=== PATIENT | male | born 1945 | race Caucasian/White ===

== ENCOUNTER 2020-01-04 03:52 | Inpatient (IN) ==
[2020-01-04] MEDS ORDERED: ALUMINUM/MAGNESIUM SUSP 30 ML UDC PO PRN (03:56)
[2020-01-04] MEDS ORDERED: ACETAMINOPHEN 325 MG TAB PO PRN (03:56)
[2020-01-04] MEDS ORDERED: MAGNESIUM HYDROXIDE SUSP 30 ML UDC PO PRN (03:56)
[2020-01-04] MEDS ORDERED: BISMUTH SUBSALICYLATE PER ML OMNICELL CHARGE PO PRN (03:56)
[2020-01-04] MEDS ORDERED: SODIUM CHLORIDE 0.65% NA SOLN 45 ML (OCEAN) PRN (03:56)
[2020-01-04] MEDS ORDERED: PATIENT'S ALLERGY INFO NEEDS ENTERED SCH (04:15)
[2020-01-04] MEDS ORDERED: SERTRALINE HCL 50 MG TABLET PO SCH (09:00)
--- NOTE | 2020-01-04 11:21 | History & Physical ---
Date of Service January 04, 2020 Impression / Recommendations (1) Depression: 01/03 -continue inpatient treatment on a 302 involuntary commitment. Continue to gather information toward the need for ongoing treatment -Every 15 minute checks for safety. Encourage group attendance and participation. Work on healthy coping skills and discharge safety plan. -Increase escitalopram to 15mg daily to target mood and anxiety. -Provide education about his diagnosis and the recommended treatment. Explore options for outpatient mental health treatment. -Involve his daughter and the [facility] for discharge planning. (2) Failure to thrive: 01/03 -Likely multifactorial, due to worsening physical condition due to Parkinson's, cognitive impairment, depression, and social isolation. -PT and OT consults for weakness with recent fall and inability to care for self at home, assess for most appropriate level of care (inpatient rehab versus home with home health). Daughter would like him to move to [place] to an assisted living facility near her, and has been looking into this option. (3) Parkinsons disease: 01/03 -continue home dose of Sinemet. (4) UTI (urinary tract infection): 01/03 -continue Bactrim twice daily x7 days, and get urine culture results from [facility]. (5) Urinary and fecal incontinence: 01/03 -home health nurse indicates they found him lying in his bed soiled with urine and feces. Appears to have longstanding urinary incontinence, current UTI, as well as progressive weakness and inability to get out of bed to use the bathroom. He will require increased assistance and possibly placement. (6) Vitamin D deficiency: 01/03 - Continue home dose of vitamin D Risk Factors Assessment Male: Yes : Yes Do You Have Access To A Gun?: No (Patient states he gave all of his guns to his grandson) Health Problems: Yes Mental Health Diagnoses: Yes Substance Use Disorders: No Previous Attempt: No Family History of Suicide: No Previous Psychiatric Hospitalization: Yes Hopelessness: Yes Smoker: No Protective Factors Assessment : No Responsible for Young Children: No Employed: No Supportive Family: Yes Good Rapport with Provider: No Psychiatric History Identifying Data DOUGLAS ASHLEY is a 75-year-old M who currently lives in [place] alone, has depression and an unclear medical history (records state Alzheimer's dementia but another places state Parkinson's disease), and was admitted on 01/04/20 05:23 on a 302 involuntary commitment on transfer from for depression from [facility] ER with inability to care for himself and suicidal thoughts to overdose on medication. Chief Complaint "Wasn't caring for myself properly I guess". History of Present Illness Per outside hospital records, patient presented to the ER 01/03/2020 on a 302 after his home health nurse found him home alone, lying in soiled undergarments, and made suicidal statements. His home health nurse noted he had also been exhibiting signs of inability to care for himself on their 12/30/2019 visit, was soiling himself and refusing to change clothes. The nurse completed a 302 petition stating the patient was incontinent of urine and stool, did not have any clean clothes in the house, was re-using urine soiled underwear. On 12/30/2019, he was found by social professionals lying in urine and stool. He said he had not been able to get up for 3 days, and wanted to take all of his sleeping pills and . He told the nurse he wanted his daughter in [place] to come home so he could take sleeping pills and while she was there, and also reviewed his end-of-life wishes with his daughter. He told ER staff he has been eating very little, has lost 20 pounds and is underweight, canceling his doctors appointments, and not taking his medications regularly. He said he had not been sleeping, as he was afraid to follow sleep and soil his bed, as he was unable to get up to use the bathroom. He had an EKG which showed sinus rhythm with first- degree AV block, rate of 70, QTc 392. His vital signs were normal, and labs were notable for RBC 4.47, hematocrit 40.9, BUN 32.4, creatinine 1.13, remainder of CBC and CMP normal. Troponin negative, TSH 2.390, UDS negative, UA cloudy, + ketones, protein, large leukocyte esterase, WBCs, bacteria. He was started on Bactrim for UTI. PCP records reviewed: Patient sees Cyril Cruz DO at [facility] in [place]. Last seen 06/30/2019 in follow-up from an ER visit the day prior for dizziness, which he was told was due to dehydration, and was started on doxycycline for unclear reasons. He came to the appointment with a friend, Soheila Mueller. He reported worsening resting tremors, urinary incontinence, weakness, fatigue, and poor dentition. He did not want to pay to get his teeth fixed. He had home health nursing on Fridays, and was following with a neurologist for his movement disorder. He had recently had a chest x-ray showing a 1.3 cm nodule in his right lung, and was scheduled to follow-up with pulmonary later in the month. Weight was 159.4 pounds his past problem list included obesity, weight loss, hypotension, insomnia, nocturia, GERD, erectile dysfunction, hyperlipidemia, cardiomyopathy, coronary artery disease, and BPH with urinary obstruction. At his annual physical 02/07/2019, he was diagnosed with Alzheimer's disease, CAD, cardiomyopathy, hyperlipidemia, insomnia, and vitamin D deficiency. His only medication was vitamin D3. He has lost 5 pounds, weight was 161.2 pounds, and he was receiving Meals on Wheels. He was referred to neurology due to a tremor and shuffling gait, and had seen urology for urinary incontinence. His father had of Parkinson's disease in his 60s. On arrival to our unit, he reported his hospitalization was a misunderstanding, although admitted he made statements that he would be "better off ." He denied a history of inpatient psychiatric treatment, although records indicate he was admitted at [facility] in 2017, and diagnosed with major depressive disorder and mild neurocognitive disorder Alzheimer's type. He re ported a fall in his bathroom about 5 days ago, and was observed to have shuffling gait and poor coordination. He said he did not feel safe at home due to weakness and would like home health to come in more frequently than 2 days/week. Staff contacted his PCP to clarify diagnoses and outpatient medications, as there were discrepancies between the ER last and his home health nursing list. Staff contacted his home health nurse, who reported that he still has a grab driver's license, and although she has contacted his PCPs office to express concerns that he is too impaired and should not drive, she is unsure whether action has been taken. Staff contacted the patient's daughter, who reports that he has been struggling for some time and going downhill, especially over the past few months in the context of worsening health. He moved to this area to be close to family, but they have since . He is and has a son and a stepson as well, but has little contact with them. His daughter has been trying to get him into assisted living near her in [place] for over a year, but he has been resistant to this, citing fears that he does not have sufficient funds, which she says is untrue. She is hoping that he will now agreed to move there. The Office of Aging has been involved but has told her that he is "competent to live in such poor conditions." He has been refusing to go to the doctor, take medications, shower, eat, or dress. He repeatedly tells her he wants to . On my assessment, the patient states he is here due to not caring for himself and problems with "cleanliness." He is unable to state how long this is been going on, and says he is "bad with time." He reports worsening mood, weakness, poor energy, and dissatisfaction with his life, stating "I just want a normal life," which he clarifies means "good health." He says he would prefer not to take any medications, and does not think any of his medications help him. He references his tremor, stating it is always there and interferes with sleep, and he does not think the Sinemet helps with his movements. He admits he never followed up with a neurologist, and that he has been canceling multiple doctors appointments, which he attributes to weakness and being unable to stand up or get out of bed. He says he drives himself to his appointments, and denies recently getting lost and MVAs. He reports multiple stressors, including "the state of the world," and disagreements with his daughter, namely that she wants him to go to assisted living, but he would "rather not," stating he does not have enough money. He admits to making suicidal statements, but says he "chose my words poorly, I just said it, I didn't mean it." He endorses frequent worry, stating he is worried about the state of the world, trying to becoming a world power, and the state of the [place]. He is socially isolated, stating he return to [place] where he is from as he had family members there, but they have all (he is unsure how long ago). He has one friend, an 88-year-old woman named Soheila who he met at the [facility], but states she can only provide limited support. He no longer goes to the [facility] or socializes outside the home. He does not endorse symptoms of lali or psychosis. He does report memory impairment. He is not sure how long he has been on the Lexapro. Past Psychiatric History Current Psychiatric Diagnosis: MDD, recurrent Outpatient Services: PCP Cyril Cruz DO. No psychiatrist, therapist, or case technician, although reportedly the Office of Aging has recently become involved. Previous Psych Admissions: Patient denied, but outside hospital records indicate he was involuntarily committed [facility] in 2017 for suicidal ideation. Do You Have Access To A Gun?: No (Patient states he gave all of his guns to his grandson) History of Previous Suicide Attempt: No Past Medication Trials: Unknown -patient cannot recall Allergies Allergy/AdvReac Type Severity Reaction Status Date / Time No Known Allergies Allergy Unverified 01/04/20 04:59 Home Medications Home Medications Medication Instructions Recorded Confirmed Type carbidopa-levodopa 1 tab PO TID 01/04/20 01/04/20 History cholecalciferol (vitamin D3) 5,000 unit PO DAILY 01/04/20 01/04/20 History [Vitamin D3] escitalopram oxalate [Lexapro] 10 mg PO DAILY 01/04/20 01/04/20 History Family History Family History of: Other-List under Comment Family Mental Health History Comment: Father of Parkinson's disease in his 60s per OSH records, patient is unsure if this is accurate Alcohol History Hx of Alcohol Use Over the Past 12 Months: No AUDIT Total Score: 0 Smoking Use Have You Smoked or Used Tobacco Products in the Last 30 Days: No Smoking Status: Former smoker Substance History Hx of Prescription Med Misuse Over the Past 12 Months: No Hx of Over the Counter Med Misuse Over the Past 12 Months: No Hx of Inhalent Misuse Over the Past 12 Months: No Hx of Organic Substance Use Over the Past 12 Months: No Hx of Illegal Substances/Street Drug Use Over Past 12 Months: No Problems as a Result of Past Substance Use: None Identified Personal History Living Arrangements: Home Living Arrangements Comments: Alone in [place]. 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) Number Of Children: 1 son, 1 daughter, 1 step-son Beliefs That Will Affect Care: None Current Legal Problems: No Patient History Medical History (Updated 01/04/20 @ 12:17 by Crystal Soares MD) CAD (coronary artery disease) Depression Failure to thrive Parkinsons disease Urinary and fecal incontinence UTI (urinary tract infection) Vitamin D deficiency Social History Preferred Language: Omani Communication Ability: Effective Supervisor [employer] Required: No Beliefs That Will Affect Care: None Feels Safe at Home: No Smoking Status: Former smoker Review of Systems Review of Systems: All systems reviewed & are unremarkable except as noted in HPI & below Weakness, urinary incontinence, gait difficulties, tremor, memory impairment Physical Exam Psychiatric: Somnolent, difficult to arouse from sleep Apperance: appropriately dressed and appeared stated age Thin, stooped over Eye Contact: + poor eye contact Slow, shuffling, unsteady gait Affect: + depressed affect, + anxious affect, + constricted affect and mood congruent with affect Mood: + depressed mood and + anxious mood Thought Process: + circumstantial thought process Thought Content: + cognitive distortions Suicidal Thoughts: denies suicidal thoughts Homicidal Thoughts: denies homicidal thoughts Hallucinations: no auditory hallucinations and no visual hallucinations Cognition: + recent memory not intact and + attention not intact Estimated Intelligence: consistent with education level Insight: + impaired insight Judgement: + impaired judgement Vital Signs (Past 24 Hours): Last Vital Signs Temp 36.6 C 01/04/20 06:00 Pulse 62 01/04/20 06:00 Resp 16 01/04/20 06:00 BP 124/68 01/04/20 06:00 Exam Statement: A physical exam was performed in the ER prior to admission to the unit by Dr. Carlos Sumner. I accept that physical as correct/medical clearance for the inpatient physical exam. Results & Data (U) Current Inpatient Medications Current Inpatient Medications: Current Inpatient Medications Acetaminophen (Tylenol) 650 mg PO Q4H PRN PRN Reason: Headache or Minor Fever Stop: 02/03/20 03:55 Al Hydrox/Mg Hydrox/Simethicone (Maalox) 30 ml PO Q4H PRN PRN Reason: GI Upset Stop: 02/03/20 03:55 Bismuth Subsalicylate (Kaopectate) 15 ml PO PRN PRN PRN Reason: Loose Stool Stop: 02/03/20 03:55 Donepezil HCl (Aricept) 5 mg PO QPM OPHELIA Stop: 02/03/20 20:59 Magnesium Hydroxide (Milk Of Magnesia) 30 ml PO DAILY PRN PRN Reason: Constipation Stop: 02/03/20 03:55 Sertraline HCl (Zoloft) 25 mg PO QAM OPHELIA Stop: 02/03/20 08:59 Sodium Chloride ([place] Nasal) 1 - 2 sprays NA PRN PRN PRN Reason: Nasal Dryness/Congestion Stop: 02/03/20 03:55
[2020-01-04] MEDS: CARBIDOPA/LEVODOPA 25/100MG TAB PO SCH ×2 (14:41→20:52)
[2020-01-04] MEDS: SULFAMETHOXAZOLE/TRIMETHOPRIM DS 800/160MG TAB PO SCH ×2 (14:41→20:51)
[2020-01-04] MEDS: LACTOBACILLUS ACIDOPHILUS (FLORANEX) TAB PO SCH (17:18)
[2020-01-04] MEDS ORDERED: DONEPEZIL HCL 5 MG TAB PO SCH (21:00)
--- NOTE | 2020-01-05 08:15 | Psychiatric Progress Note ---
Date of Service January 05, 2020 Impression / Recommendations Impression 75-year-old male with recurrent depression, Parkinson's disease, and Alzheimer's dementia per outpatient records who presented with inability to care for himself after his home health workers found him lying in his own urine and feces multiple times over the past week. At one point he had been unable to get out of bed for 3 days due to weakness. He then made suicidal statements to his daughter and was involuntarily committed. Since arrival, his daughter has reported that he frequently makes statements about wanting to , but she does not think he will act on them. He has been gradually decompensating as a result of his neurological conditions and has now reached the point where he is unable to provide for his own basic needs or continue to live independently, and is experiencing this is a significant loss. He will need a family meeting to include his daughter in the office of aging servomechanism designer in order to look at alternative options after discharge. These include assisted living in [place] and inpatient rehab in [place]. In the interim, inpatient treatment is medically necessary due to the severity of symptoms and risk of harm as a result of inability to care for himself until a safe discharge plan can be arranged. (1) Depression: 01/03 -continue inpatient treatment on a 302 involuntary commitment. Continue to gather information toward the need for ongoing treatment -Every 15 minute checks for safety. Encourage group attendance and participation. Work on healthy coping skills and discharge safety plan. -Increase escitalopram to 15mg daily to target mood and anxiety. -Provide education about his diagnosis and the recommended treatment. Explore options for outpatient mental health treatment. -Involve his daughter and the [facility]OA for discharge planning. 01/04 -continue escitalopram 15 mg daily. Encourage patient to participate in groups and therapy. -Schedule family meeting as above. (2) Failure to thrive: 01/03 -Likely multifactorial, due to worsening physical condition due to Parkinson's, cognitive impairment, depression, and social isolation. -PT and OT consults for weakness with recent fall and inability to care for self at home, assess for most appropriate level of care (inpatient rehab versus home with home health). Daughter would like him to move to [place] to an assisted living facility near her, and has been looking into this option. 01/04 -awaiting PT and OT assessments to determine level of care (3) Parkinsons disease: 01/03 -continue home dose of Sinemet. 01/04 -patient would benefit from ongoing care with a neurologist, but has not been willing to attend appointments. (4) UTI (urinary tract infection): 01/03 -continue Bactrim twice daily x7 days, and get urine culture results from [facility] ER. 01/04 -culture and sensitivities not yet completed, will check again tomorrow. (5) Urinary and fecal incontinence: 01/03 -home health nurse indicates they found him lying in his bed soiled with urine and feces. Appears to have longstanding urinary incontinence, current UTI, as well as progressive weakness and inability to get out of bed to use the bathroom. He will require increased assistance and possibly placement. (6) Vitamin D deficiency: 01/03 - Continue home dose of vitamin D (7) Lung nodule: 01/04 -1.3 cm lung nodule noted in outpatient records from PCP 06/2019 visit, patient had been referred to a emu farmer. He does not think he ever went, and the ER called today to inform us of the results of his chest x-ray prior to transfer, which showed a 1.3 centimeter nodule. He will need to follow-up with his PCP for ongoing monitoring/work-up/treatment. Risk Factors Assessment Male: Yes : Yes Do You Have Access To A Gun?: No (Patient states he gave all of his guns to his grandson) Health Problems: Yes Mental Health Diagnoses: Yes Substance Use Disorders: No Previous Attempt: No Family History of Suicide: No Previous Psychiatric Hospitalization: Yes Hopelessness: Yes Smoker: No Protective Factors Assessment : No Responsible for Young Children: No Employed: No Supportive Family: Yes Good Rapport with Provider: No Interval History Identifying Information DOUGLAS ASHLEY is a 75-year-old M who currently lives in [place] alone, has depression and an unclear medical history (records state Alzheimer's dementia but another places state Parkinson's disease), and was admitted on 01/04/20 05:23 on a 302 involuntary commitment on transfer from for depression from [facility] ER with inability to care for himself and suicidal thoughts to overdose on medication. Chief Complaint " Average". Review of Systems Sleep Information Total Hours of Sleep: 4.5 Sleep Comments: Pt had difficulty falling asleep due to worry that he would have episodes of incontinence through the night. After reassurance he was able to fall asleep. Meal Information Percent Meal Consumed - Breakfast: 100 Percent Meal Consumed - Lunch: 75 Percent Meal Consumed - Dinner: 90 Subjective Subjective Patient was seen & assessed and interval progress reviewed with nursing and social work. Staff report he has been very anxious, has had multiple episodes of incontinence (both urine and feces), and slept poorly overnight. He requires staff assist for self care, and was reluctant to wear depends. He is very un steady on his feet, and has not yet been seen by PT and OT. Sherine called to report results of his CXR - persistent 13mm opacity overlying the left upper lobe. Urine culture and sensitivities are still pending. On my assessment, he reports mood is anxious and depressed, hopeless, and overwhelmed. Informed of his chest x-ray results and recommendations to follow-up, noted review of PCP records which indicated he had a pulmonology appointment earlier this year, but he does not think he went, stating "there's nothing wrong with my lungs." He says "my trouble is I have a house I can't live in hardly. I don't want to lose my house, but looks like I'm going to lose it. You work all your life to get a house, then can't manage it." Reviewed option of inpatient physical rehab in [place], and he states "I'd probably get in a car accident driving over there." Reviewed option of assisted living in [place], and he says "everything in that area costs double what it is up here, and my monthly income will be reduced." He admits that he has no other available options for housing, but does not like discussing it, stating "I'm trying to simplify my life, all this complicates it." He denies SI, and feels safe here. He is focused on bowel and bladder control, at one point stopping the interview as he thought he had to have a bowel movement, but then decided he did not. He was able to complete the MOCA, but had difficulty understanding the directions of they had to be repeated multiple times. Reviewed his score and concerns for cognitive impairment, as well as physical impairment due to his Parkinson's disease, his own reports that he does not trust his driving, and the need to make the mandated [employer] report of his medical condition. He expressed dismay, stating "my life is over, won't be able to drive to get food, go to the doctors, get a haircut." Reviewed other options for transportation, including the county van, or that if he goes to an assisted living facility they will likely provide transportation. Process multiple losses with him, including his home and the ability to drive. Reviewed what will happen next and provided him with [facility] handout: "What to expect when my medical condition has been reported to [facility]." Physical Exam Psychiatric Orientation: alert and cooperative Thin, frail, hunched over, limited hygiene and grooming, smells of urine. Eye Contact: + fair eye contact Slow, shuffling gait, appears unsteady on feet. Resting upper extremity tremor. Slow movements, difficulty sitting up Soft, difficult to hear at times Affect: + depressed affect, + anxious affect, + constricted affect and mood congruent with affect Mood: + depressed mood and + anxious mood Thought Process: goal directed thought process Focused on negative thoughts, losses Thought Content: + preoccupation, + hopelessness and + worthlessness Suicidal Thoughts: denies suicidal thoughts Homicidal Thoughts: denies homicidal thoughts Hallucinations: no auditory hallucinations Cognition: language grossly intact; + recent memory not intact and + attention not intact Estimated Intelligence: consistent with education level Insight: + limited insight Judgement: + limited judgement Vital Signs (Past 24 Hours) Last Vital Signs Temp 36.7 C 01/05/20 06:51 Pulse 80 01/05/20 06:52 Resp 18 01/05/20 06:51 BP 129/79 01/05/20 06:52 Pulse Ox 97 01/04/20 12:15 Results & Data ([facility]) Current Inpatient Medications Current Inpatient Medications: Current Inpatient Medications Acetaminophen (Tylenol) 650 mg PO Q4H PRN PRN Reason: Headache or Minor Fever Stop: 02/03/20 03:55 Al Hydrox/Mg Hydrox/Simethicone (Maalox) 30 ml PO Q4H PRN PRN Reason: GI Upset Stop: 02/03/20 03:55 Bismuth Subsalicylate (Kaopectate) 15 ml PO PRN PRN PRN Reason: Loose Stool Stop: 02/03/20 03:55 Carbidopa/Levodopa (Sinemet 25/100 Mg) 1 tab PO TID OPHELIA Stop: 02/03/20 13:59 Last Admin: 01/04/20 20:52 Dose: 1 tab Documented by: Escitalopram Oxalate (Lexapro Tab) 15 mg PO DAILY OPHELIA Stop: 02/04/20 08:59 Lactobacillus Acidophilus (Floranex) 4 tab PO TIDM OPHELIA Stop: 02/03/20 17:44 Last Admin: 01/04/20 17:18 Dose: 4 tab Documented by: Magnesium Hydroxide (Milk Of Magnesia) 30 ml PO DAILY PRN PRN Reason: Constipation Stop: 02/03/20 03:55 Sodium Chloride ([place] Nasal) 1 - 2 sprays NA PRN PRN PRN Reason: Nasal Dryness/Congestion Stop: 02/03/20 03:55 Trimethoprim/Sulfamethoxazole (Septra Ds 800/160mg Tab) 1 tab PO BID OPHELIA Stop: 01/09/20 13:29 Last Admin: 01/04/20 20:51 Dose: 1 tab Documented by: Vitamin D (Vitamin D3) 5,000 units PO DAILY OPHELIA Stop: 02/04/20 08:59 Mental Health & Subst Abuse Tx Therapist Name of Therapist: None Truck Driver Rubbish Collector Name of Truck Driver Rubbish Collector: None Post Discharge Appointments Primary Care Physician Name Of Family Doctor: Dr. Cyril Cruz Primary Care Provider Appointment Comment: [address] [place], [place] [address]Sherine PA
[2020-01-05] MEDS: LACTOBACILLUS ACIDOPHILUS (FLORANEX) TAB PO SCH ×3 (08:39→18:03)
[2020-01-05] MEDS: CHOLECALCIFEROL 1,000 UNITS 25 MCG TAB PO SCH (08:40)
[2020-01-05] MEDS: CARBIDOPA/LEVODOPA 25/100MG TAB PO SCH ×3 (08:42→21:10)
[2020-01-05] MEDS: ESCITALOPRAM OXALATE 10 MG TAB PO SCH (08:42)
[2020-01-05] MEDS: SULFAMETHOXAZOLE/TRIMETHOPRIM DS 800/160MG TAB PO SCH ×2 (08:45→21:10)
[2020-01-05] MEDS ORDERED: ESCITALOPRAM OXALATE 10 MG TAB PO SCH (09:00)
[2020-01-06] MEDS: LACTOBACILLUS ACIDOPHILUS (FLORANEX) TAB PO SCH ×3 (08:47→16:39)
[2020-01-06] MEDS: ESCITALOPRAM OXALATE 10 MG TAB PO SCH (08:47)
[2020-01-06] MEDS: SULFAMETHOXAZOLE/TRIMETHOPRIM DS 800/160MG TAB PO SCH ×2 (08:48→21:08)
[2020-01-06] MEDS: CHOLECALCIFEROL 1,000 UNITS 25 MCG TAB PO SCH (08:48)
[2020-01-06] MEDS: CARBIDOPA/LEVODOPA 25/100MG TAB PO SCH ×3 (08:48→21:09)
--- NOTE | 2020-01-06 09:09 | Psychiatric Progress Note ---
Date of Service January 06, 2020 Impression / Recommendations Impression 75-year-old male with recurrent depression, Parkinson's disease, and Alzheimer's dementia per outpatient records who presented with inability to care for himself after his home health workers found him lying in his own urine and feces multiple times over the past week. At one point he had been unable to get out of bed for 3 days due to weakness. He then made suicidal statements to his daughter and was involuntarily committed. Since arrival, his daughter has reported that he frequently makes statements about wanting to , but she does not think he will act on them. He has been gradually decompensating as a result of his neurological conditions and has now reached the point where he is unable to provide for his own basic needs or continue to live independently, and is experiencing this is a significant loss. He will need a family meeting to include his daughter in the office of aging director university in order to look at alternative options after discharge. These include assisted living in [place] and inpatient rehab in [place]. In the interim, inpatient treatment is medically necessary due to the severity of symptoms and risk of harm as a result of inability to care for himself until a safe discharge plan can be arranged. (1) Depression: 01/03 -continue inpatient treatment on a 302 involuntary commitment. Continue to gather information toward the need for ongoing treatment -Every 15 minute checks for safety. Encourage group attendance and participation. Work on healthy coping skills and discharge safety plan. -Increase escitalopram to 15mg daily to target mood and anxiety. -Provide education about his diagnosis and the recommended treatment. Explore options for outpatient mental health treatment. -Involve his daughter and the [facility] for discharge planning. 01/04 -continue escitalopram 15 mg daily. Encourage patient to participate in groups and therapy. -Schedule family meeting as above. (2) Failure to thrive: 01/03 -Likely multifactorial, due to worsening physical condition due to Parkinson's, cognitive impairment, depression, and social isolation. -PT and OT consults for weakness with recent fall and inability to care for self at home, assess for most appropriate level of care (inpatient rehab versus home with home health). Daughter would like him to move to [place] to an assisted living facility near her, and has been looking into this option. 01/04 -awaiting PT and OT assessments to determine level of care (3) Parkinsons disease: 01/03 -continue home dose of Sinemet. 01/04 -patient would benefit from ongoing care with a neurologist, but has not been willing to attend appointments. (4) UTI (urinary tract infection): 01/03 -continue Bactrim twice daily x7 days, and get urine culture results from [facility] ER. 01/04 -culture and sensitivities not yet completed, will check again tomorrow. (5) Urinary and fecal incontinence: 01/03 -home health nurse indicates they found him lying in his bed soiled with urine and feces. Appears to have longstanding urinary incontinence, current UTI, as well as progressive weakness and inability to get out of bed to use the bathroom. He will require increased assistance and possibly placement. (6) Vitamin D deficiency: 01/03 - Continue home dose of vitamin D (7) Lung nodule: 01/04 -1.3 cm lung nodule noted in outpatient records from PCP 06/2019 visit, patient had been referred to a vascular manager. He does not think he ever went, and the ER called today to inform us of the results of his chest x-ray prior to transfer, which showed a 1.3 centimeter nodule. He will need to follow-up with his PCP for ongoing monitoring/work-up/treatment. Risk Factors Assessment Male: Yes : Yes Do You Have Access To A Gun?: No (Patient states he gave all of his guns to his grandson) Health Problems: Yes Mental Health Diagnoses: Yes Substance Use Disorders: No Previous Attempt: No Family History of Suicide: No Previous Psychiatric Hospitalization: Yes Hopelessness: Yes Smoker: No Protective Factors Assessment : No Responsible for Young Children: No Employed: No Supportive Family: Yes Good Rapport with Provider: No Interval History Identifying Information DOUGLAS ASHLEY is a 75-year-old M who currently lives in [place] alone, has depression and an unclear medical history (records state Alzheimer's dementia but another places state Parkinson's disease), and was admitted on 01/04/20 05:23 on a 302 involuntary commitment on transfer from for depression from [facility] ER with inability to care for himself and suicidal thoughts to overdose on medication. Chief Complaint "[]". Review of Systems Sleep Information Total Hours of Sleep: 4.75 Sleep Comments: Pt had difficulty falling asleep due to worry that he would have episodes of incontinence through the night. After reassurance he was able to fall asleep. Meal Information Percent Meal Consumed - Breakfast: 90 Percent Meal Consumed - Lunch: 75 Percent Meal Consumed - Dinner: 90 Subjective Subjective Patient was seen & assessed and interval progress reviewed with [treatment team] [nursing and social work] Physical Exam Vital Signs (Past 24 Hours) Last Vital Signs Temp 36.8 C 01/06/20 07:01 Pulse 84 01/06/20 07:01 Resp 18 01/06/20 07:01 BP 134/66 01/06/20 07:01 Pulse Ox 97 01/04/20 12:15 Results & Data ([facility]) Current Inpatient Medications Current Inpatient Medications: Current Inpatient Medications Acetaminophen (Tylenol) 650 mg PO Q4H PRN PRN Reason: Headache or Minor Fever Stop: 02/03/20 03:55 Al Hydrox/Mg Hydrox/Simethicone (Maalox) 30 ml PO Q4H PRN PRN Reason: GI Upset Stop: 02/03/20 03:55 Bismuth Subsalicylate (Kaopectate) 15 ml PO PRN PRN PRN Reason: Loose Stool Stop: 02/03/20 03:55 Carbidopa/Levodopa (Sinemet 25/100 Mg) 1 tab PO TID OPHELIA Stop: 02/03/20 13:59 Last Admin: 01/06/20 08:48 Dose: 1 tab Documented by: Escitalopram Oxalate (Lexapro Tab) 15 mg PO DAILY OPHELIA Stop: 02/04/20 08:59 Last Admin: 01/06/20 08:47 Dose: 15 mg Documented by: Lactobacillus Acidophilus (Floranex) 4 tab PO TIDM OPHELIA Stop: 02/03/20 17:44 Last Admin: 01/06/20 08:47 Dose: 4 tab Documented by: Magnesium Hydroxide (Milk Of Magnesia) 30 ml PO DAILY PRN PRN Reason: Constipation Stop: 02/03/20 03:55 Sodium Chloride ([place] Nasal) 1 - 2 sprays NA PRN PRN PRN Reason: Nasal Dryness/Congestion Stop: 02/03/20 03:55 Trimethoprim/Sulfamethoxazole (Septra Ds 800/160mg Tab) 1 tab PO BID OPHELIA Stop: 01/09/20 13:29 Last Admin: 01/06/20 08:48 Dose: 1 tab Documented by: Vitamin D (Vitamin D3) 5,000 units PO DAILY OPHELIA Stop: 02/04/20 08:59 Last Admin: 01/06/20 08:48 Dose: 5,000 units Documented by: Mental Health & Subst Abuse Tx Therapist Name of Therapist: None Tactical/Mobile Watch Officer Name of Tactical/Mobile Watch Officer: None Post Discharge Appointments Primary Care Physician Name Of Family Doctor: Dr. Cyril Cruz Primary Care Provider Appointment Comment: [address] [place], [place] [address]Jarrell PA
--- NOTE | 2020-01-06 11:23 | Psychiatric Progress Note ---
Date of Service January 06, 2020 Impression / Recommendations Impression This 75-year-old man was admitted because of inability to care for himself within the context of depression and Parkinson's disease. He also expressed suicidal threats that included taking an overdose of his stockpiled medications at home. The patient explains that he is having a great deal of difficulty adjusting to his new reality; namely that he has a progressive neurodegenerative disorder that is now interfering with his ability to function while living independently in his 3 bedroom home and [place]. Currently, he is telling us that he does not have any actual suicidal intent, but admits that he sometimes threatens suicide as a way of expressing his emotional distress. On the unit, the patient has demonstrated a number of strengths, including a sense of humor, concerning compassion about others, and a willingness to cooperate with treatment. Understandably, he tends to view options such as assisted living and residential rehabilitation treatment as evidence of further loss of independence, control, and dignity. However, while he is able to say that he is "not exactly happy" about needing inpatient rehab, with a follow-up plan for assisted living in the [facility], close to his daughter, son-in-law, and grandchildren, he is able to clearly state that he understands that he cannot safely return to home at this point because he is unable to care for his own physical needs, including his nutritional needs, his physical health needs, and his personal care needs such as bathing, showering, toileting, and dressing. The patient has been placed on Lexapro, and the dose is being titrated the patient's mood has improved, although he continues to show evidence of depression with a tendency towards negative thinking and excessive worrying. However, he is convincingly denying suicidal ideation at the present time. (1) Depression: 01/03 -continue inpatient treatment on a 302 involuntary commitment. Continue to gather information toward the need for ongoing treatment -Every 15 minute checks for safety. Encourage group attendance and participation. Work on healthy coping skills and discharge safety plan. -Increase escitalopram to 15mg daily to target mood and anxiety. -Provide education about his diagnosis and the recommended treatment. Explore options for outpatient mental health treatment. -Involve his daughter and the [facility] for discharge planning. 01/04 -continue escitalopram 15 mg daily. Encourage patient to participate in groups and therapy. -Schedule family meeting as above. 01/05 -the patient was able to smile and joke a bit today during an individual encounter with psychiatry. He continues to experience emotional distress related to themes of loss, such as loss of independence and physical health. -Patient participated in family meeting today with his daughter, Cookie, as well as the psychiatrist and psychotherapist social worker. The patient agreed to sign releases of information and is aware of the plan for him to leave the hospital on Thursday and be transferred to a rehabilitation program. He had a number of questions regarding the services that are likely to be offered in the rehabilitation program, and he accepted the explanations. Further, the patient acknowledges that he agreed that it is not currently safe for him to go home given his mobility issues, the fact that he is not able to put on or remove adult diapers, the fact it is sometimes difficult for him to remember to take his medications on time, and the fact that he has mobility problems due to his Parkinson's disease. -The patient acknowledges that he feels discouraged by the fact that he is not making progress, in terms of his movement disorder, and he expresses hope that rehab will be helpful in this regard. Present on Admission?: Yes (2) Failure to thrive: 01/03 -Likely multifactorial, due to worsening physical condition due to Parkinson's, cognitive impairment, depression, and social isolation. -PT and OT consults for weakness with recent fall and inability to care for self at home, assess for most appropriate level of care (inpatient rehab versus home with home health). Daughter would like him to move to [place] to an assisted living facility near her, and has been looking into this option. 01/04 -awaiting PT and OT assessments to determine level of care 01/05 -we have determined that the patient is an excellent candidate for the residential rehabilitation level of care at the present time. Goals will include helping the patient through occupational therapy to allow him to be able to apply and remove "Depends," use absorbent pads on his furniture, improve ambulation and grasp, improve nutritional status, and improve balance and strength. (3) Parkinsons disease: 01/03 -continue home dose of Sinemet. 01/04 -patient would benefit from ongoing care with a neurologist, but has not been willing to attend appointments. 01/05 -the patient needs additional education regarding Parkinson's disease. He admits that he sometimes feels as if there is nothing that can be done to improve his condition, but he is receptive to the idea of physical rehabilitation, additional education regarding medication management (such as the importance of taking his Parkinson medications exactly on time and as prescribed) and for preparation for progressing to the assisted living level of care. (4) UTI (urinary tract infection): 01/03 -continue Bactrim twice daily x7 days, and get urine culture results from [facility]. 01/04 -culture and sensitivities not yet completed, will check again tomorrow. 01/04 - Culture and Sensitivities are still pending. Will check with lab. (5) Urinary and fecal incontinence: 01/03 -home health nurse indicates they found him lying in his bed soiled with urine and feces. Appears to have longstanding urinary incontinence, current UTI, as well as progressive weakness and inability to get out of bed to use the bathroom. He will require increased assistance and possibly placement. 01/05 -The patient is very distressed by this circumstance, and also worries that when visiting friends and family that he may soil or wet their furniture should he have an "accident." -He notes that he has great difficulty applying and removing adult diapers such as "Depends" because of his movement disorder. The patient states, "I can do it, but it takes so long that I tend to just give up. (6) Vitamin D deficiency: 01/03 - Continue home dose of vitamin D (7) Lung nodule: 01/04 -1.3 cm lung nodule noted in outpatient records from PCP 06/2019 visit, patient had been referred to a labeling machine operator. He does not think he ever went, and the ER called today to inform us of the results of his chest x-ray prior to transfer, which showed a 1.3 centimeter nodule. He will need to follow-up with his PCP for ongoing monitoring/work-up/treatment. Risk Factors Assessment Male: Yes : Yes Do You Have Access To A Gun?: No (Patient states he gave all of his guns to his grandson) Health Problems: Yes Mental Health Diagnoses: Yes Substance Use Disorders: No Previous Attempt: No Family History of Suicide: No Previous Psychiatric Hospitalization: Yes Hopelessness: Yes Smoker: No Protective Factors Assessment : No Responsible for Young Children: No Employed: No Supportive Family: Yes Good Rapport with Provider: No Interval History Chief Complaint " Depression, but it is better.". Review of Systems Sleep Information Total Hours of Sleep: 4.75 Sleep Comments: Pt had difficulty falling asleep due to worry that he would have episodes of incontinence through the night. After reassurance he was able to fall asleep. Meal Information Percent Meal Consumed - Breakfast: 100 Percent Meal Consumed - Lunch: 75 Percent Meal Consumed - Dinner: 90 Subjective Subjective Patient was seen & assessed and interval progress reviewed with treatment team. In addition, I met telephonically with the patient's daughter, Cookie, in the p resence of the patient and the unit psychotherapist social worker this morning, and I then met with individually with the patient in order to assess his current mental status, evaluate his response to treatment, make any necessary changes in the patient's medication regiment with the patient, and address issues, questions and concerns that may arise. The patient is clearly able to acknowledge that in his current state of physical health he is unable to safely care for his own physical needs independently in his own home, which he describes as a 3 bedroom house. He lives alone, and his daughter, son-in-law, and grandchildren live approximately 4 hours away in [facility]. At the same time, he notes that he finds options such as residential rehabilitation services followed by assisted living to be discouraging because he sees them as evidence of further loss of independence, dignity, and status. Further, he worries that the cost of rehabilitation and assisted living may be such that it will reduce his savings, and he notes that he does not wish to deprive his daughter of a generous inheritance. During the family telephonic conference the patient's daughter was able to offer him reassurance is that in this regard and she explained to him that, for her, his safety is worth much more to her than any monetary inheritance. We focused on overcoming the fact that the patient truly wishes th at his physical condition was not such that he required rehabilitation and assisted living by processing the patient's feelings in this regard while, at the same time, appealing to the patient's executive functions and ability to make mature decisions. During both encounters the patient smiled occasionally and made several jokes. He also laughed out loud on 2 occasions and acknowledges that his mood has improved. He tells us that he does feel ready for residential rehabilitation, but would still like to have a better understanding of the costs and what percentage of the cost are likely to be covered by insurance. Physical Exam Psychiatric Orientation: alert, oriented x 3 and cooperative Apperance: appropriately dressed and appropriately groomed Eye Contact: + fair eye contact Patient has a 3-6 beat per second bilateral tremor of the upper extremities, head, and neck, secondary to parkinsonism The patient's speech is somewhat soft and slightly garbled, but clearly audible and understandable. The patient's affect remains somewhat subdued, but he also smiles and laughs appropriately several times during the encounter. Mood: + anxious mood The patient acknowledges that he is anxious about transferring to a residential rehabilitation program. He notes that part of his anxiety has to do with the fact that he will be "the new kid," and will not know anybody at the proposed residential rehabilitation center. We assured him that he has made friends here and that he will make friends there, as well. Thought Process: goal directed thought process Thought Content: + preoccupation and reality based without delusions Suicidal Thoughts: denies suicidal thoughts Homicidal Thoughts: denies homicidal thoughts Hallucinations: no auditory hallucinations and no visual hallucinations Cognition: recent memory grossly intact, remote memory grossly intact and language grossly intact Estimated Intelligence: average estimated intelligence Insight: + fair insight Judgement: + fair judgement Vital Signs (Past 24 Hours) Last Vital Signs Temp 36.8 C 01/06/20 07:01 Pulse 84 01/06/20 07:01 Resp 18 01/06/20 07:01 BP 134/66 01/06/20 07:01 Pulse Ox 97 01/04/20 12:15 Results & Data ([facility]) Current Inpatient Medications Current Inpatient Medications: Current Inpatient Medications Acetaminophen (Tylenol) 650 mg PO Q4H PRN PRN Reason: Headache or Minor Fever Stop: 02/03/20 03:55 Al Hydrox/Mg Hydrox/Simethicone (Maalox) 30 ml PO Q4H PRN PRN Reason: GI Upset Stop: 02/03/20 03:55 Bismuth Subsalicylate (Kaopectate) 15 ml PO PRN PRN PRN Reason: Loose Stool Stop: 02/03/20 03:55 Carbidopa/Levodopa (Sinemet 25/100 Mg) 1 tab PO TID OPHELIA Stop: 02/03/20 13:59 Last Admin: 01/06/20 08:48 Dose: 1 tab Documented by: Escitalopram Oxalate (Lexapro Tab) 15 mg PO DAILY OPHELIA Stop: 02/04/20 08:59 Last Admin: 01/06/20 08:47 Dose: 15 mg Documented by: Lactobacillus Acidophilus (Floranex) 4 tab PO TIDM OPHELIA Stop: 02/03/20 17:44 Last Admin: 01/06/20 08:47 Dose: 4 tab Documented by: Magnesium Hydroxide (Milk Of Magnesia) 30 ml PO DAILY PRN PRN Reason: Constipation Stop: 02/03/20 03:55 Sodium Chloride ([place] Nasal) 1 - 2 sprays NA PRN PRN PRN Reason: Nasal Dryness/Congestion Stop: 02/03/20 03:55 Trimethoprim/Sulfamethoxazole (Septra Ds 800/160mg Tab) 1 tab PO BID OPHELIA Stop: 01/09/20 13:29 Last Admin: 01/06/20 08:48 Dose: 1 tab Documented by: Vitamin D (Vitamin D3) 5,000 units PO DAILY OPHELIA Stop: 02/04/20 08:59 Last Admin: 01/06/20 08:48 Dose: 5,000 units Documented by: Mental Health & Subst Abuse Tx Therapist Name of Therapist: None Bolt Maker Name of Bolt Maker: None Post Discharge Appointments Primary Care Physician Name Of Family Doctor: Dr. Cyril Cruz Primary Care Provider Appointment Comment: [address] [place], [place] [address]J[place]
[2020-01-07] MEDS: LACTOBACILLUS ACIDOPHILUS (FLORANEX) TAB PO SCH ×3 (08:51→18:45)
[2020-01-07] MEDS: ESCITALOPRAM OXALATE 10 MG TAB PO SCH (08:52)
[2020-01-07] MEDS: CHOLECALCIFEROL 1,000 UNITS 25 MCG TAB PO SCH (08:53)
[2020-01-07] MEDS: CARBIDOPA/LEVODOPA 25/100MG TAB PO SCH ×3 (08:53→21:23)
[2020-01-07] MEDS: SULFAMETHOXAZOLE/TRIMETHOPRIM DS 800/160MG TAB PO SCH ×2 (08:53→21:23)
--- NOTE | 2020-01-07 12:13 | Psychiatric Progress Note ---
Date of Service January 07, 2020 Impression / Recommendations Impression This 75-year-old man was admitted because of inability to care for himself within the context of depression and Parkinson's disease. He also expressed suicidal threats that included taking an overdose of his stockpiled medications at home. The patient explains that he is having a great deal of difficulty adjusting to his new reality; namely that he has a progressive neurodegenerative disorder that is now interfering with his ability to function while living independently in his 3 bedroom home and Fish. Currently, he is telling us that he does not have any actual suicidal intent, but admits that he sometimes threatens suicide as a way of expressing his emotional distress. On the unit, the patient has demonstrated a number of strengths, including a sense of humor, concerning compassion about others, and a willingness to cooperate with treatment. Understandably, he tends to view options such as assisted living and residential rehabilitation treatment as evidence of further loss of independence, control, and dignity. However, while he is able to say that he is "not exactly happy" about needing inpatient rehab, with a follow-up plan for assisted living in the [facility], close to his daughter, son-in-law, and grandchildren, he is able to clearly state that he understands that he cannot safely return to home at this point because he is unable to care for his own physical needs, including his nutritional needs, his physical health needs, and his personal care needs such as bathing, showering, toileting, and dressing. The patient has been placed on Lexapro, and the dose is being titrated the patient's mood has improved, although he continues to show evidence of depression with a tendency towards negative thinking and excessive worrying. However, he is convincingly denying suicidal ideation at the present time. (1) Depression: 01/03 -continue inpatient treatment on a 302 involuntary commitment. Continue to gather information toward the need for ongoing treatment -Every 15 minute checks for safety. Encourage group attendance and participation. Work on healthy coping skills and discharge safety plan. -Increase escitalopram to 15mg daily to target mood and anxiety. -Provide education about his diagnosis and the recommended treatment. Explore options for outpatient mental health treatment. -Involve his daughter and the [facility] for discharge planning. 01/04 -continue escitalopram 15 mg daily. Encourage patient to participate in groups and therapy. -Schedule family meeting as above. 01/05 -the patient was able to smile and joke a bit today during an individual encounter with psychiatry. He continues to experience emotional distress related to themes of loss, such as loss of independence and physical health. -Patient participated in family meeting today with his daughter, Cookie, as well as the psychiatrist and hospice social worker. The patient agreed to sign releases of information and is aware of the plan for him to leave the hospital on Thursday and be transferred to a rehabilitation program. He had a number of questions regarding the services that are likely to be offered in the rehabilitation program, and he accepted the explanations. Further, the patient acknowledges that he agreed that it is not currently safe for him to go home given his mobility issues, the fact that he is not able to put on or remove adult diapers, the fact it is sometimes difficult for him to remember to take his medications on time, and the fact that he has mobility problems due to his Parkinson's disease. -The patient acknowledges that he feels discouraged by the fact that he is not making progress, in terms of his movement disorder, and he expresses hope that rehab will be helpful in this regard. 01/06 - pleasant today, does seem to be tolerating medications, and although not enthusiatic about the plan he is able to show reasoning that he understands the need for rehabilitation and then assisted living of some sort due to his p hysical limitations. He is able to talk about this greif appropriately and denies SI, intention or plan. (2) Failure to thrive: 01/03 -Likely multifactorial, due to worsening physical condition due to Parkinson's, cognitive impairment, depression, and social isolation. -PT and OT consults for weakness with recent fall and inability to care for self at home, assess for most appropriate level of care (inpatient rehab versus home with home health). Daughter would like him to move to [place] to an assisted living facility near her, and has been looking into this option. 01/04 -awaiting PT and OT assessments to determine level of care 01/05 and 01/06 -we have determined that the patient is an excellent candidate for the residential rehabilitation level of care at the present time. Goals will include helping the patient through occupational therapy to allow him to be able to apply and remove "Depends," use absorbent pads on his furniture, improve ambulation and grasp, improve nutritional status, and improve balance and strength. (3) Parkinsons disease: 01/03 -continue home dose of Sinemet. 01/04 -patient would benefit from ongoing care with a neurologist, but has not been willing to attend appointments. 01/05 and 01/06 -the patient needs additional education regarding Parkinson's disease. He admits that he sometimes feels as if there is nothing that can be done to improve his condition, but he is receptive to the idea of physical rehabilitation, additional education regarding medication management (such as the importance of taking his Parkinson medications exactly on time and as prescribed) and for preparation for progressing to the assisted living level of care. (4) UTI (urinary tract infection): 01/03 -continue Bactrim twice daily x7 days, and get urine culture results from [facility]. 01/04 -culture and sensitivities not yet completed, will check again tomorrow. 01/04 - Culture and Sensitivities are still pending. Will check with lab. (5) Urinary and fecal incontinence: 01/03 -home health nurse indicates they found him lying in his bed soiled with urine and feces. Appears to have longstanding urinary incontinence, current UTI, as well as progressive weakness and inability to get out of bed to use the bathroom. He will require increased assistance and possibly placement. 01/05 -The patient is very distressed by this circumstance, and also worries that when visiting friends and family that he may soil or wet their furniture should he have an "accident." -He notes that he has great difficulty applying and removing adult diapers such as "Depends" because of his movement disorder. The patient states, "I can do it, but it takes so long that I tend to just give up. 01/06 - ongoing greif over this physical impairment, but working [facility] nursing staff toward maintaining hygiene doing independently what he can while also allowing assitance when needed. (6) Vitamin D deficiency: 01/03 - Continue home dose of vitamin D (7) Lung nodule: 01/04 -1.3 cm lung nodule noted in outpatient records from PCP 06/2019 visit, patient had been referred to a application integration specialist. He does not think he ever went, and the ER called today to inform us of the results of his chest x-ray prior to transfer, which showed a 1.3 centimeter nodule. He will need to follow-up with his PCP for ongoing monitoring/work-up/treatment. Risk Factors Assessment Male: Yes : Yes Do You Have Access To A Gun?: No (Patient states he gave all of his guns to his grandson) Health Problems: Yes Mental Health Diagnoses: Yes Substance Use Disorders: No Previous Attempt: No Family History of Suicide: No Previous Psychiatric Hospitalization: Yes Hopelessness: Yes Smoker: No Protective Factors Assessment : No Responsible for Young Children: No Employed: No Supportive Family: Yes Good Rapport with Provider: No Interval History Chief Complaint "I am not able to do all the things I want to do". Review of Systems Sleep Information Total Hours of Sleep: 5.5 Sleep Comments: Q2H toileting schedule per patient request. Meal Information Percent Meal Consumed - Breakfast: 100 Percent Meal Consumed - Lunch: 70 Percent Meal Consumed - Dinner: 100 Subjective Subjective Patient was seen & assessed and interval progress reviewed with nursing and social work The patient is eating well, sleeping, compliant with medications. Met with patient in his room. 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 He notes he is not able to do the things he needs to be able to do, and is concerned that no one is paying his bills while he is in the hospital and keeping his place safe. He does have intact reality testing that his daughter has power of attourney and is likely able to help but "she lives far away in [place] and is not on the property" and he is uncertain if she is paying his bills or not at this time. Social Work came to inform patient and provider that [facility] is reveiwing records trying to get medical and neurology records from outpatient providers. Pt states it makes sense what the team is trying to do but he still feels down about having Parkinson's trying so many medicaitons and feeling "weaker than ever." He denies overt Si, intention or plans, but is sad about his loss of indepdence as he has always been independent. He laments having incontinence and not able to clean himself after defecating very well, and at times not able to button his own pants. He states he feels that his needs have strained his relationship with dtr as she often sees a new treatment on TV and says "you should try that" when he already feels weary from the many medication trials and the polypharmacy. He notes he is sleeping but feels weaker than he ever has, and his appetite is fair but not as good as it has been in the past. He denies other pain at this time, does have physical limitations as noted above and he points out his tremor. Physical Exam Psychiatric Orientation: alert and oriented x 3 Apperance: appropriately groomed Eye Contact: good eye contact Motor Behavior: + tremor He sat at his bedside, I did not see him ambulate today Speech: normal rate/rhythm/volume of speech (slight hoarseness) Affect: + blunted affect "not the best because I am stuck here, it is a little like a custodial" Thought Process: goal directed thought process and linear/logical thought process denies AVH, IOR, or delusions, thoughts are reality based and focused on the losses he has physically compared to his once independent self Suicidal Thoughts: denies suicidal thoughts Homicidal Thoughts: denies homicidal thoughts Cognition: recent memory grossly intact and attention grossly intact I did not test his executive function today nor ask him to do any complex reasoning or planning Estimated Intelligence: average estimated intelligence Insight: + fair insight Judgement: + fair judgement Vital Signs (Past 24 Hours) Last Vital Signs Temp 36.7 C 01/07/20 06:51 Pulse 79 01/07/20 06:52 Resp 18 01/07/20 06:51 BP 126/66 01/07/20 06:52 Pulse Ox 97 01/04/20 12:15 Results & Data ([facility]) Current Inpatient Medications Current Inpatient Medications: Current Inpatient Medications Acetaminophen (Tylenol) 650 mg PO Q4H PRN PRN Reason: Headache or Minor Fever Stop: 02/03/20 03:55 Al Hydrox/Mg Hydrox/Simethicone (Maalox) 30 ml PO Q4H PRN PRN Reason: GI Upset Stop: 02/03/20 03:55 Bismuth Subsalicylate (Kaopectate) 15 ml PO PRN PRN PRN Reason: Loose Stool Stop: 02/03/20 03:55 Carbidopa/Levodopa (Sinemet 25/100 Mg) 1 tab PO TID OPHELIA Stop: 02/03/20 13:59 Last Admin: 01/07/20 08:53 Dose: 1 tab Documented by: Escitalopram Oxalate (Lexapro Tab) 15 mg PO DAILY OPHELIA Stop: 02/04/20 08:59 Last Admin: 01/07/20 08:52 Dose: 15 mg Documented by: Lactobacillus Acidophilus (Floranex) 4 tab PO TIDM OPHELIA Stop: 02/03/20 17:44 Last Admin: 01/07/20 08:51 Dose: 4 tab Documented by: Magnesium Hydroxide (Milk Of Magnesia) 30 ml PO DAILY PRN PRN Reason: Constipation Stop: 02/03/20 03:55 Sodium Chloride (Colby Nasal) 1 - 2 sprays NA PRN PRN PRN Reason: Nasal Dryness/Congestion Stop: 02/03/20 03:55 Trimethoprim/Sulfamethoxazole (Septra Ds 800/160mg Tab) 1 tab PO BID OPHELIA Stop: 01/09/20 13:29 Last Admin: 01/07/20 08:53 Dose: 1 tab Documented by: Vitamin D (Vitamin D3) 5,000 units PO DAILY OPHELIA Stop: 02/04/20 08:59 Last Admin: 01/07/20 08:53 Dose: 5,000 units Documented by: Mental Health & Subst Abuse Tx Therapist Name of Therapist: None Computer Clerk Name of Computer Clerk: None Post Discharge Appointments Primary Care Physician Name Of Family Doctor: Dr. Cyril Cruz Primary Care Provider Appointment Comment: [address] [place], [place] [id number]
[2020-01-08] MEDS: LACTOBACILLUS ACIDOPHILUS (FLORANEX) TAB PO SCH ×3 (08:50→18:11)
[2020-01-08] MEDS: ESCITALOPRAM OXALATE 10 MG TAB PO SCH (08:51)
[2020-01-08] MEDS: CARBIDOPA/LEVODOPA 25/100MG TAB PO SCH ×3 (08:52→21:26)
[2020-01-08] MEDS: SULFAMETHOXAZOLE/TRIMETHOPRIM DS 800/160MG TAB PO SCH ×2 (08:52→21:26)
[2020-01-08] MEDS: CHOLECALCIFEROL 1,000 UNITS 25 MCG TAB PO SCH (08:53)
--- NOTE | 2020-01-08 11:29 | Psychiatric Progress Note ---
Date of Service January 08, 2020 Impression / Recommendations Impression This 75-year-old man was admitted because of inability to care for himself within the context of depression and Parkinson's disease. He also expressed suicidal threats that included taking an overdose of his stockpiled medications at home. The patient explains that he is having a great deal of difficulty adjusting to his new reality; namely that he has a progressive neurodegenerative disorder that is now interfering with his ability to function while living independently in his 3 bedroom home and [place]. Currently, he is telling us that he does not have any actual suicidal intent, but admits that he sometimes threatens suicide as a way of expressing his emotional distress. On the unit, the patient has demonstrated a number of strengths, including a sense of humor, concerning compassion about others, and a willingness to cooperate with treatment. Understandably, he tends to view options such as assisted living and residential rehabilitation treatment as evidence of further loss of independence, control, and dignity. However, while he is able to say that he is "not exactly happy" about needing inpatient rehab, with a follow-up plan for assisted living in the [facility], close to his daughter, son-in-law, and grandchildren, he is able to clearly state that he understands that he cannot safely return to home at this point because he is unable to care for his own physical needs, including his nutritional needs, his physical health needs, and his personal care needs such as bathing, showering, toileting, and dressing. The patient has been placed on Lexapro, and the dose is being titrated the patient's mood has improved, although he continues to show evidence of depression with a tendency towards negative thinking and excessive worrying. However, he is convincingly denying suicidal ideation at the present time. (1) Depression: 01/03 -continue inpatient treatment on a 302 involuntary commitment. Continue to gather information toward the need for ongoing treatment -Every 15 minute checks for safety. Encourage group attendance and participation. Work on healthy coping skills and discharge safety plan. -Increase escitalopram to 15mg daily to target mood and anxiety. -Provide education about his diagnosis and the recommended treatment. Explore options for outpatient mental health treatment. -Involve his daughter and the [facility] for discharge planning. 01/04 -continue escitalopram 15 mg daily. Encourage patient to participate in groups and therapy. -Schedule family meeting as above. 01/05 -the patient was able to smile and joke a bit today during an individual encounter with psychiatry. He continues to experience emotional distress related to themes of loss, such as loss of independence and physical health. -Patient participated in family meeting today with his daughter, Cookie, as well as the psychiatrist and social media specialist. The patient agreed to sign releases of information and is aware of the plan for him to leave the hospital on Thursday and be transferred to a rehabilitation program. He had a number of questions regarding the services that are likely to be offered in the rehabilitation program, and he accepted the explanations. Further, the patient acknowledges that he agreed that it is not currently safe for him to go home given his mobility issues, the fact that he is not able to put on or remove adult diapers, the fact it is sometimes difficult for him to remember to take his medications on time, and the fact that he has mobility problems due to his Parkinson's disease. -The patient acknowledges that he feels discouraged by the fact that he is not making progress, in terms of his movement disorder, and he expresses hope that rehab will be helpful in this regard. 01/06 and 01/07 - pleasant today, does seem to be tolerating medications, and although not enthusiatic about the plan he is able to show reasoning that he understands the need for rehabilitation and then assisted living of some sort due to his physical limitations. He is able to talk about this greif appropriately and denies SI, intention or plan. I would hope that his sleep and appetite and hope would improve as his depression improves and he settles to a more firm plan outside of the psychiatric unit. (If he continues to have poor sleep or appetite, could consider replace lexapro wtih remeron in the future after med-med interaction check, would need to monitor for orthostasis/fall risk.) (2) Failure to thrive: 01/03 -Likely multifactorial, due to worsening physical condition due to Parkinson's, cognitive impairment, depression, and social isolation. -PT and OT consults for weakness with recent fall and inability to care for self at home, assess for most appropriate level of care (inpatient rehab versus home with home health). Daughter would like him to move to [place] to an assisted living facility near her, and has been looking into this option. 01/04 -awaiting PT and OT assessments to determine level of care 01/05 and 01/06 -we have determined that the patient is an excellent candidate for the residential rehabilitation level of care at the present time. Goals will include helping the patient through occupational therapy to allow him to be able to apply and remove "Depends," use absorbent pads on his furniture, improve ambulation and grasp, improve nutritional status, and improve balance and strength. 01/07 - patient is motivated to exercise showing effort and volition here, but needing staff support for routine ADLs such as bathing, toileting or assistance cleaning up if missed opportunity for toileting or in AM after night of sleep. He is receptive to the idea of regaining stamina and strength as his personal goal is to maintain his abilities as long as he is able. At request of [facility] will seek consultation of Neurology for assessment of his PD and treatment and appropriateness for inpatient rehab, and from [facility] for assessment of his medical status and appropriateness for inpatient rehab as well. (3) Parkinsons disease: 01/03 -continue home dose of Sinemet. 01/04 -patient would benefit from ongoing care with a neurologist, but has not been willing to attend appointments. 01/05 and 01/06 -the patient needs additional education regarding Parkinson's disease. He admits that he sometimes feels as if there is nothing that can be done to improve his condition, but he is receptive to the idea of physical rehabilitation, additional education regarding medication management (such as the importance of taking his Parkinson medications exactly on time and as prescribed) and for preparation for progressing to the assisted living level of care. 01/07 - neurology consult for assessment of PD, treatment regimen and appropriateness for inpatient rehab (4) UTI (urinary tract infection): 01/03 -continue Bactrim twice daily x7 days, and get urine culture results from [facility]. 01/04 -culture and sensitivities not yet completed, will check again tomorrow. 01/04 - Culture and Sensitivities are still pending. Will check with lab. (5) Urinary and fecal incontinence: 01/03 -home health nurse indicates they found him lying in his bed soiled with urine and feces. Appears to have longstanding urinary incontinence, current UTI, as well as progressive weakness and inability to get out of bed to use the bathroom. He will require increased assistance and possibly placement. 01/05 -The patient is very distressed by this circumstance, and also worries that when visiting friends and family that he may soil or wet their furniture should he have an "accident." -He notes that he has great difficulty applying and removing adult diapers such as "Depends" because of his movement disorder. The patient states, "I can do it, but it takes so long that I tend to just give up. 01/06 and 01/07 - ongoing grief over this physical impairment, but working with nursing staff toward maintaining hygiene doing independently what he can while also allowing assistance when needed. (6) Vitamin D deficiency: 01/03 - Continue home dose of vitamin D (7) Lung nodule: 01/04 -1.3 cm lung nodule noted in outpatient records from PCP 06/2019 visit, patient had been referred to a sheet tailer. He does not think he ever went, and the ER called today to inform us of the results of his chest x-ray prior to transfer, which showed a 1.3 centimeter nodule. He will need to follow-up with his PCP for ongoing monitoring/work-up/treatment. Risk Factors Assessment Male: Yes : Yes Do You Have Access To A Gun?: No (Patient states he gave all of his guns to his grandson) Health Problems: Yes Mental Health Diagnoses: Yes Substance Use Disorders: No Previous Attempt: No Family History of Suicide: No Previous Psychiatric Hospitalization: Yes Hopelessness: Yes Smoker: No Protective Factors Assessment : No Responsible for Young Children: No Employed: No Supportive Family: Yes Good Rapport with Provider: No Interval History Chief Complaint "I feel like I am losing". Review of Systems Sleep Information Total Hours of Sleep: 3.75 Sleep Comments: awake and talking with staff. Meal Information Percent Meal Consumed - Breakfast: 90 Percent Meal Consumed - Lunch: 25 Percent Meal Consumed - Dinner: 75 Subjective Subjective Patient was seen & assessed and interval progress reviewed with nursing and social work. Patient per nursing had poor sleep up and down 4hours up and down. He did shower yesterday , minmal assistance with tolieting and dressing but continues with incontinence and depends. He remains on MNPR due to high needs throughout day and night and incontinence concerns requiring privacy. Social work has been in contact with [facility] and they are requiring receipt and reveiw of internal medicine assessment and neurology assessment as a part of reveiw for acceptance to rehabilitation. Met with patient today he is trying to stay active and walk on the unit. He notes sometimes he sleeps very deeply and other times he does have trouble sleeping. He notes it is "no win....when I sleep deeply I wake in my own urine....when I don't I am more likely to get up and go to the bathroom....but I have trouble getting up out of the bed. I have never been this weak, I was always a very strong person. 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 He is concerned about the cost of living [place] when his dtr does find a place, and the loss of living in his own space. He does not argue wtih the fact that he has trouble caring for himself, and that he will no longer be driving and these are losses that are sad. He does feel most poorly about others having to help him with his toileting and cleaning up with his incontinence. He reports he had diarrhea prior to admission it is less but still intermittantly causing fecal urgency and ultimately incontinence due to slow moving to restroom. The bowel concerns preceed the lexapro and are improving so he and provider agree that it is not likley causing the concern, but he is clear to say he does not like taking additional medications, but is willing to. Physically he has ongoing urinary incontinence and at times bowel urgency with fecal incontinence due to slow moving to restroom, shuffling slow gait and tremor, fair appetite but not as good as his historical appetite. Sleep is intermittant. He denies other concerns at this time physically. Physical Exam Psychiatric Orientation: alert and oriented x 3 Apperance: appropriately dressed Eye Contact: good eye contact Motor Behavior: + tremor walks slow with shuffling tentative gait, slow to initiate activities, limited psychomotor movement of his arms or limbs when sitting talking and masked/flat facial expression regular even tone, some flow/serena but not a lot of inflection, not hoarse today as he was yesterday, reasonable rate possibly slightly slow but not out of ordinary for 75yo person who display slow intentional manner of speaking Affect: + blunted affect he does not give an emotional word spontaneously he says "I feel like being here is like a penitentiary you can't do what you want to do" and agrees with provider when the word "sad" and "grief" are used Thought Process: clear/coherent thought process and + perseveration sadness about his physical losses that then result in the probable losses of living independently, and suspending of his license. Suicidal Thoughts: denies suicidal plan and denies suicidal intent passive thoughts that if a spontaneous unprovoked medical concern ended his life he would not be sad, but denies active ideations to self harm, denies intention to self harm, denies plans to self harm Homicidal Thoughts: denies homicidal thoughts Hallucinations: no auditory hallucinations and no visual hallucinations recent memory for last 24hours intact, did not test longer time frames Estimated Intelligence: consistent with education level Insight: + fair insight Judgement: + fair judgement Vital Signs (Past 24 Hours) Last Vital Signs Temp 36.9 C 01/08/20 06:27 Pulse 86 01/08/20 06:27 Resp 18 01/08/20 06:27 BP 135/62 01/08/20 06:27 Pulse Ox 97 01/04/20 12:15 Results & Data ([facility]) Current Inpatient Medications Current Inpatient Medications: Current Inpatient Medications Acetaminophen (Tylenol) 650 mg PO Q4H PRN PRN Reason: Headache or Minor Fever Stop: 02/03/20 03:55 Al Hydrox/Mg Hydrox/Simethicone (Maalox) 30 ml PO Q4H PRN PRN Reason: GI Upset Stop: 02/03/20 03:55 Bismuth Subsalicylate (Kaopectate) 15 ml PO PRN PRN PRN Reason: Loose Stool Stop: 02/03/20 03:55 Carbidopa/Levodopa (Sinemet 25/100 Mg) 1 tab PO TID OPHELIA Stop: 02/03/20 13:59 Last Admin: 01/08/20 08:52 Dose: 1 tab Documented by: Escitalopram Oxalate (Lexapro Tab) 15 mg PO DAILY OPHELIA Stop: 02/04/20 08:59 Last Admin: 01/08/20 08:51 Dose: 15 mg Documented by: Lactobacillus Acidophilus (Floranex) 4 tab PO TIDM OPHELIA Stop: 02/03/20 17:44 Last Admin: 01/08/20 08:50 Dose: 4 tab Documented by: Magnesium Hydroxide (Milk Of Magnesia) 30 ml PO DAILY PRN PRN Reason: Constipation Stop: 02/03/20 03:55 Sodium Chloride ([place] Nasal) 1 - 2 sprays NA PRN PRN PRN Reason: Nasal Dryness/Congestion Stop: 02/03/20 03:55 Trimethoprim/Sulfamethoxazole (Septra Ds 800/160mg Tab) 1 tab PO BID OPHELIA Stop: 01/09/20 13:29 Last Admin: 01/08/20 08:52 Dose: 1 tab Documented by: Vitamin D (Vitamin D3) 5,000 units PO DAILY OPHELIA Stop: 02/04/20 08:59 Last Admin: 01/08/20 08:53 Dose: 5,000 units Documented by: Mental Health & Subst Abuse Tx Therapist Name of Therapist: None Engineering Technology Instructor Name of Engineering Technology Instructor: None Post Discharge Appointments Primary Care Physician Name Of Family Doctor: Dr. Cyril Cruz Primary Care Provider Appointment Comment: [address] [place], [place] [address]
--- NOTE | 2020-01-08 12:10 | Consultation ---
Date of Consultation January 08, 2020 Assessment & Plan (1) Parkinsons disease: Patient with reported Parkinson's disease. On carbidopa levodopa Patient with noted tremors and pill-rolling on exam. Noted difficulty with ambulation and difficulty with transfers PT/OT eval has been completed and recommends acute rehab Agree with patient benefiting from acute rehab Would recommend continuing current carbidopa levodopa Would recommend outpatient neurology follow-up for further evaluation and possible medication changes (2) Depression: Currently in behavioral health unit for depression, reported suicidal expressions and inability to care for himself Currently on Lexapro Recommend following psychiatry recommendations (3) UTI (urinary tract infection): Currently being treated with Bactrim twice daily x7 days. Has 2 days remaining CBC and BMP today unremarkable Recommend finishing Bactrim course (4) Lung nodule: Per scanned outpatient record patient with known pulmonary nodule. Had follow-up with pulmonology however did not follow-up Would recommend outpatient follow-up for further observation and evaluation (5) Urinary incontinence: Patient with chronic urinary incontinence. Reports had followed up with urology in 2 boys in the past patient. Reports had been on medications in past however did not like taking medicine so discontinued Would recommend outpatient follow-up with urology for further evaluation and consideration of medication Would recommend follow up with PCP in 1-2 weeks upon discharge Pt was seen and care coordinated with Dr Lentz. See addendum Thank you for this consultation. You can reach a [facility] via pager @ [phone]. Supervising Physician Co-Signing Physician Notes Patient was seen and examined by me, care coordinated with Sylvia Roa PA-C. Please see her note above for further details. Mr. Jackson is a 75-year-old male, with history of Parkinson's disease, possible Alzheimer dementia, BPH, with urinary obstruction, nocturia, hyperlipidemia, CAD, cardiomyopathy, history of pulmonary nodule, poor dentition, who we were asked to see in consultation, by psychiatry service. Patient was admitted to psychiatry unit on January 03, as transfer from [facility] ER. He lives alone, and he was found by home health nurse incontinent of urine and stool, not able to take care of himself, and stating that he would take his sleep medication pills and would be better off . In the ED in [place], he was diagnosed with UTI, and he was started treatment with Bactrim. Per pharmacy record, patient filled Sinemet and Lexapro on November 17. Patient does not like to take medications, and per records, he is noncompliant with medications. He also has history of pulmonary nodule, and was supposed to follow-up with pulmonary medicine however did not. He has poor dentition, and was supposed to follow-up with dentist, however did not follow-up recently either. Patient has a daughter Cookie, who lives in [place], and she is very interested in having her father closer to her, at assisted facility. Currently psychiatry service is in contact with [facility] where they want to place the patient for rehabilitation. Plan is to then possibly transfer him to assisted facility in [place]. Patient is currently sitting up in bed, in no acute distress. He is alert and oriented and able to answer questions appropriately. He states that he has been having troubles with tremor, weakness, and gait instability. He is complaining about incontinence, stating that he has to go to bathroom several times at night, and he has troubles walking to the bathroom. When asked about his urinary incontinence and BPH, patient states that he saw urologist very long time ago, and at that time was prescribed 3 medications. At this time he is not taking any of these medications. Per review of records from his PCP that we were able to obtain, patient only takes vitamin D. As mentioned earlier, patient also takes Sinemet and Lexapro. Currently at psychiatric care, Lexapro for his depression and suicidal statements. Patient at this time does not feel that Sinemet is helping with his tremors and weakness. Per review of records, patient was supposed to follow-up with neurologist, it is unclear if he saw neurology. Patient states he did not. Psychiatry service also asks for neurology consultation prior to his possible discharge to [facility]. On physical exam, patient has no facial asymmetry, speech is fluent, answers questions appropriately. Lung sounds are clear to auscultation, without any wheezing, rhonchi or crackles. Heart sounds are regular without any notable murmurs. Abdomen is soft, nontender, nondistended, bowel sounds are present. Patient is moving upper and lower extremity spontaneously and without difficulty, he is even able to stand up on his own and then sit down again. He does have resting tremor in his upper extremities. There is no lower extremity edema noted. Skin is warm, dry, well-perfused. Given his recent diagnosis of UTI, and Bactrim treatment, without any recent lab work, will obtain basic labs and will review. Patient is almost at the end of his UTI treatment. Per review of his records, patient is not taking any medications for his reported CAD and cardiomyopathy. Patient denies any history of heart disease. He is also reluctant taking any new medications. At this time would not start any new medications unless absolutely necessary. Would review results of his blood work, and will try to obtain records from his primary care providers. It is recommended that he follows up with urology, neurology, pulmonary medicine and his dentist as outpatient at his earliest convenience. Certainly, he should follow-up with his primary care physician as well. Patients daughter Cookie, was contacted however I was only able to leave a message. Her number at patient's bedside was , will try to reach her again later. MD Caute History of Present Illness . Requesting Physician: Dr Ortega Reason for Consultation: Medical evaluation Attending Physician: Crystal Soares MD History of Present Illness Pt is 75 y/o M with PMH per records Parkinson's, chronic urinary incontinence, chronic diarrhea, recurrent falls, depression, insomnia, vitamin D deficiency, H/O pulmonary nodule seen in consultation for medical evaluation. Patient currently admitted to mental health unit for depression and recently reported suicidal ideations, and inability to care for himself. Patient was initially seen in [place] ER and medically cleared and referred to behavior health unit here. Pt was reported to have UTI on ER evaluation and treated with Bactrim BID x 7 days. We are being consulted for evaluation of underlying medical issues as patient is trying to go to rehab. Was trying to get patient to [facility] however [facility] was unable to obtain patient's outpatient medical records and it was requested that internal medicine evaluate patient. Patient is from [place] and follows with Dr. Cruz -PCP in [place] Per one scanned outpatient PCP records from 06/2019 patient with problem list including CAD, cardiomyopathy, HLD, Alzheimer's and only med listed is vitamin D. Upon discussion with patient patient reports does not have Alzheimer's and was later diagnosed with Parkinson's. He reports chronic tremors of bilateral hands. Reports has difficulty walking which has been going on "for some time". he states he has chronic weakness. He has difficulty getting himself out of bed. He reports that he has had falls in the past. He currently lives alone. His daughter lives out of state in [place]. He states she is trying to get him to move closer to her so she can assist with care. He reports he was to follow with outpatient neurology however has not done so yet. Patient on carbidopa levodopa, unsure how long his been on that. He does not think he has noticed much improvement of his symptoms of tremors and difficulty walking since being on this. Patient is very hesitant to be on any medications and reports is why he is not following up with other specialist. Patient denies any known cardiac history, denies any cardiac procedures or being on any cardiac medications. Patient denies any chest pain, shortness of breath, dizziness. Patient states currently taking carbidopa levodopa, vitamin D, Lexapro. Patient with reported UTI on initial ER evaluation at [facility] and treated with Bactrim twice daily x7 days. Patient has 2 days medication remaining. He has chronic urinary incontinence. It is reported patient was having difficulty caring for himself and was noted to be soiled on multiple occasions. Patient denies any dysuria, hematuria, urinary retention, abdominal pain, flank pain, fever, chills. Admits not eating much at home. He has followed with dentist in past who recommended bridge/dentures and pt has not gotten as he reports it is expensive. Reports hard for him to chew some foods. Here in hospital is on soft diet and he reports doing ok with that. Denies diaphoresis, N/V, DAVIS, dizziness, syncope, vision changes, neck pain, CP, SOB, orthopnea, palpitations, cough, cho mo, otalgia, rhinorrhea, abdominal pain, paresthesias, extremity edema, rashes. Allergies Allergy/AdvReac Type Severity Reaction Status Date / Time No Known Allergies Allergy Unverified 01/04/20 04:59 Home Medications Home Medications Medication Instructions Recorded Confirmed Type cholecalciferol (vitamin D3) 5,000 unit PO DAILY 01/04/20 01/04/20 History [Vitamin D3] carbidopa-levodopa 1 tab PO QID 30 Days #120 tab 01/09/20 Rx escitalopram oxalate 15 mg PO DAILY 30 Days #45 tab 01/09/20 Rx Patient History Medical History CAD (coronary artery disease) Depression Failure to thrive Lung nodule Parkinsons disease Urinary and fecal incontinence UTI (urinary tract infection) Vitamin D deficiency Family History Father Parkinsons disease Social History Preferred Language: Albanian Communication Ability: Effective Lead Atg Developer Required: No Beliefs That Will Affect Care: None Feels Safe at Home: No Smoking Status: Former smoker Review of Systems Review of Systems: All systems reviewed & are unremarkable except as noted in HPI & below Physical Exam Physical Exam: General: no distress, WDWN Head: normocephalic, atraumatic Eyes: conjunctiva non-injected, anicteric ENT: normal inspection external ears, nose, mucous membranes moist Neck: supple, trachea midline Lungs: clear, no respiratory distress, no wheezing/rhonchi/rales CV: RRR, no murmur, no pretibial edema Abd: normal BS, soft, non-tender Ext: no discoloration, no calf tenderness Neuro: A&O x 3, normal affect, +pill rolling bilateral, noted short gait Skin: warm, dry Results & Data ([facility]) Vital Signs (Past 12 Hours) Vital Signs Temp Pulse Resp BP 01/08/20 06:27 36.9 C 86 18 135/62 Laboratory Results Short CBC 01/08/20 Range/Units 12:38 WBC 5.99 (4.8-10.8) K/uL Hgb 13.7 L (14.0-18.0) g/dL Hct 40.2 L (42-52) % Plt Count 242 (130-400) K/uL BMP 01/08/20 12:38 Sodium 137 Potassium 4.3 Chloride 100 Carbon Dioxide 26 BUN 32 H Creatinine 1.19 Glucose 93 Calcium 8.5
[2020-01-08 13:01] LABS: Hematocrit (blood only) 40.2 % (42-52); Hemoglobin 13.7 g/dL (14.0-18.0); Mean Corpuscular Hemoglobin 30.2 pg (25-34); Mean Corpuscular Hgb Conc 34.1 g/dL (32-36); Mean Corpuscular Volume 88.7 fL (80-100); Mean Platelet Volume 9.6 fL (7.4-10.4); Platelet Count 242 K/uL (130-400); RDW Coefficient of Variation 13.5 % (11.5-14.5); Red Blood Count 4.53 M/uL (4.7-6.1); White Blood Count 5.99 K/uL (4.8-10.8)
[2020-01-08 13:29] LABS: BUN Creatinine Ratio 26.9 (10-20); Calcium 8.5 mg/dl (8.5-10.1); Creatinine Clr Calc Pharmacy 46.9 ml/min; Est GFR (African American) 67.9; Est GFR (Non-African American) 58.6; Potassium 4.3 mmol/L (3.5-5.1)
--- NOTE | 2020-01-08 16:09 | Hospitalist Progress Note ---
Date of Service January 08, 2020 Assessment & Plan Admission and Anticipated Discharge Date Admission Date: January 04, 2020 Subjective Patient was seen and examined by me, care coordinated with Sylvia Roa PA-C. Please see her note above for further details. Mr. Jackson is a 75-year-old male, with history of Parkinson's disease, possible Alzheimer dementia, BPH, with urinary obstruction, nocturia, hyperlipidemia, CAD, cardiomyopathy, history of pulmonary nodule, poor dentition, who we were asked to see in consultation, by psychiatry service. Patient was admitted to psychiatry unit on January 03, as transfer from [facility]. He lives alone, and he was found by home health nurse incontinent of urine and stool, not able to take care of himself, and stating that he would take his sleep medication pills and would be better off . In the ED in [place], he was diagnosed with UTI, and he was started treatment with Bactrim. Per pharmacy record, patient filled Sinemet and Lexapro on November 17. Patient does not like to take medications, and per records, he is noncompliant with medications. He also has history of pulmonary nodule, and was supposed to follow-up with pulmonary medicine however did not. He has poor dentition, and was supposed to follow-up with dentist, however did not follow-up recently either. Patient has a daughter Cookie, who lives in [place], and she is very interested in having her father closer to her, at long term facility. Currently psychiatry service is in contact with [facility] where they want to place the patient for rehabilitation. Plan is to then possibly transfer him to long term facility in [place]. Patient is currently sitting up in bed, in no acute distress. He is alert and oriented and able to answer questions appropriately. He states that he has been having troubles with tremor, weakness, and gait instability. He is complaining about incontinence, stating that he has to go to bathroom several times at night, and he has troubles walking to the bathroom. When asked about his urinary incontinence and BPH, patient states that he saw urologist very long time ago, and at that time was prescribed 3 medications. At this time he is not taking any of these medications. Per review of records from his PCP that we were able to obtain, patient only takes vitamin D. As mentioned earlier, patient also takes Sinemet and Lexapro. Currently at psychiatric care, Lexapro for his depression and suicidal statements. Patient at this time does not feel that Sinemet is helping with his tremors and weakness. Per review of records, patient was supposed to follow-up with neurologist, it is unclear if he saw neurology. Patient states he did not. Psychiatry service also asks for neurology consultation prior to his possible discharge to [facility]. On physical exam, patient has no facial asymmetry, speech is fluent, answers questions appropriately. Lung sounds are clear to auscultation, without any wheezing, rhonchi or crackles. Heart sounds are regular without any notable murmurs. Abdomen is soft, nontender, nondistended, bowel sounds are present. Patient is moving upper and lower extremity spontaneously and without difficulty, he is even able to stand up on his own and then sit down again. He does have resting tremor in his upper extremities. There is no lower extremity edema noted. Skin is warm, dry, well-perfused. Given his recent diagnosis of UTI, and Bactrim treatment, without any recent lab work, will obtain basic labs and will review. Patient is almost at the end of his UTI treatment. Per review of his records, patient is not taking any medications for his reported CAD and cardiomyopathy. Patient denies any history of heart disease. He is also reluctant taking any new medications. At this time would not start any new medications unless absolutely necessary. Would review results of his blood work, and will try to obtain records from his primary care providers. It is recommended that he follows up with urology, neurology, pulmonary medicine and his dentist as outpatient at his earliest convenience. Certainly, he should follow-up with his primary care physician as well. Patients daughter Cookie, was contacted however I was only able to leave a message. Her number at patient's bedside was , will try to reach her again later. Nat Lentz MD Results & Data Results & Data ([facility]) Vital Signs (Past 12 Hours) Vital Signs Temp Pulse Resp BP 01/08/20 06:27 36.9 C 86 18 135/62
[2020-01-09] MEDS: ESCITALOPRAM OXALATE 10 MG TAB PO SCH (08:58)
[2020-01-09] MEDS: LACTOBACILLUS ACIDOPHILUS (FLORANEX) TAB PO SCH ×3 (08:58→16:51)
[2020-01-09] MEDS: SULFAMETHOXAZOLE/TRIMETHOPRIM DS 800/160MG TAB PO SCH (09:01)
[2020-01-09] MEDS: CHOLECALCIFEROL 1,000 UNITS 25 MCG TAB PO SCH (09:02)
[2020-01-09] MEDS: CARBIDOPA/LEVODOPA 25/100MG TAB PO SCH ×2 (09:02→14:30)
--- NOTE | 2020-01-09 10:12 | Neurology Consultation ---
Date of Consultation January 09, 2020 Assessment & Plan (1) Parkinsons disease: This patient appears to have moderate right kesha-Parkinson's disease which according to the patient began 2 to 3 years ago. I agree that Sinemet is appropriate although I would increase the dosing frequency to 1 tablet 4 times per day. Further dosage increases may be made going forward. I agree that he is an appropriate candidate for inpatient rehabilitation in the context of his Parkinson's disease given the degree of his functional impairment. He may also have a mild Parkinson's associated subcortical dementia as well but does not appear to have severe cognitive impairment. I do think it would be worthwhile to obtain a copy of any CT of the head or brain MRI that he may have had completed within the past 1 to 3 years to exclude normal pressure hydrocephalus. If such records are not available I would recommend completion of a brain MRI with and without contrast to exclude this possible diagnosis. Nonetheless, his pill-rolling resting tremor is suggestive of Parkinson's disease rather than nor mal pressure hydrocephalus. Thank you for allowing me to participate in this patient's care. Please contact me if you have any additional questions or concerns regarding his neurological condition. History of Present Illness Reason for Consultation: Parkinson's disease Requesting Physician: Lor Granger MD Attending Physician: Crystal Soares MD History of Present Illness The patient is a 75-year-old male who was transferred from [facility] for further evaluation and management of severe depression with suicidal ideation in the context of Parkinson's disease. The patient lives alone and he was found by a home health aide, incontinent making suicidal statements. He has not been eating well and has lost a considerable amount of weight. He has apparently been referred to neurology for further evaluation and management of tremor and shuffling gait. He has been seen by urology for urinary incontinence. He is socially isolated although has a daughter who lives in [place]. The patient does have a prescription for a low-dose of Sinemet although he indicates that this medication has not really been very helpful. There has been some outpatient medication noncompliance noted as well. Upon further questioning regarding his diagnosis of Parkinson's disease, the patient indicates that he began to notice a right upper extremity resting tremor probably about 3 years ago. The tremor has become slightly progressive over time, a bit generalized, he has considerable difficulty arising from a seated position and admits that he has been taking very short shuffling steps. His movements have become increasingly slow and his posture flexed. He denies experiencing significant orthostatic dizziness or nocturnal restlessness. However, he does not really elaborate very much regarding his symptoms. He expresses frustration over his loss of independence. His mood and behavior have apparently been improving during his hospitalization in the behavioral health unit. There are plans for transfer to [facility] for rehabilitation. Allergies Allergy/AdvReac Type Severity Reaction Status Date / Time No Known Allergies Allergy Unverified 01/04/20 04:59 Home Medications Home Medications Medication Instructions Recorded Confirmed Type carbidopa-levodopa 1 tab PO TID 01/04/20 01/04/20 History cholecalciferol (vitamin D3) 5,000 unit PO DAILY 01/04/20 01/04/20 History [Vitamin D3] escitalopram oxalate [Lexapro] 10 mg PO DAILY 01/04/20 01/04/20 History Patient History Medical History CAD (coronary artery disease) Depression Failure to thrive Lung nodule Parkinsons disease Urinary and fecal incontinence UTI (urinary tract infection) Vitamin D deficiency Family History Father Parkinsons disease Social History Preferred Language: Irish Communication Ability: Effective Sample Tester Required: No Beliefs That Will Affect Care: None Feels Safe at Home: No Smoking Status: Former smoker Review of Systems Constitutional: + fatigue; no fever and no chills Eyes: no blind spots and no diplopia Ear, Nose, Mouth, Throat: no hearing loss Respiratory: no cough and no dyspnea Cardiovascular: no chest pain and no palpitations Gastrointestinal: no nausea and no vomiting Genitourinary: + urinary incontinence Musculoskeletal: no myalgia Integumentary: no rash and no lesions Neurologic: as per Subjective / HPI, + gait abnormality, + tremor(s) and + memory loss; no syncope and no headache(s) Psychiatric: as per Subjective / HPI and + depression Hematologic / Lymphatic: no easy bleeding and no easy bruising Exam (Neuro) Constitutional: well developed and well nourished; no acute distress Eyes: normal visual mike by confrontation, PERRL, normal accommodation and EOM intact bilaterally; no fundoscopic abnormality, no nystagmus and no papilledema Cardiovascular: Vessels: normal carotid upstroke; no carotid bruit Neurologic: Oriented to:: Person, Place and Time Memory: Remote Intact; negative Short Term Intact Attention: Span Intact; negative Concentration Intact Language: Naming Objects and Repeating Phrases Speech Fluency: negative Dysarthria Speech Aphasia: negative Aphasia Fund of Knowledge: Current Events, Past History and Vocabulary Cranial Nerves: Normal II (Visual mike full to confrontation, visual acuity normal), III, IV, (Pupils equal round reactive to light and accommodation, eye movements normal), V (Facial sensation intact), VII (There is no facial droop or weakness), VIII (Hearing intact), IX, X (Palate elevates to midline), XI (Shoulder shrug intact) and XII (Tongue protrudes to midline) Motor Strength: Normal Lower Extremities and Normal Upper Extremities; negative Pronator Drift Rigidity: Rigidity Muscle Bulk/Involuntary Movements: Pill Rolling Tremor Laterality: Right; negative Muscle Atrophy Sensation: Light Touch Intact, Pain/Temperature Intact, Vibration Intact and Proprioception Intact Coordination: Normal and Limited Balance; negative Dysdiadochokinesia, Finger-Nose Abnormal and Heel-Schaeffer Abnormal Deep Tendon Reflexes: Rt Triceps: 2+, Lt Triceps: 2+, Rt Biceps: 2+, Lt Biceps: 2+, Rt Brachioradialis: 2+, Lt Brachioradialis: 2+, Rt Patellar: 2+, Lt Patellar: 2+, Rt Ankle: 2+ and Lt Ankle: 2+ Special Tests: negative Babinski Present Gait: Stooped Details: Patient takes short steps. Exhibited considerable difficulty arising from a seated position but was able to do so on his own. Patient is bradykinetic and hypophonic. He has an intermittent right upper extremity pill-rolling resting tremor. Processing speed is somewhat slowed. Results & Data ([facility]) Vital Signs (Past 12 Hours) Vital Signs Temp Pulse Resp BP 01/09/20 06:42 80 95/58 L 01/09/20 06:41 36.7 C 85 18 128/66 Laboratory Results WBC 5.99, hemoglobin 13.7, hematocrit 40.2, platelet count 242, sodium 137, potassium 4.3, BUN 32, creatinine 1.19, glucose 93, calcium 8.5 Coding Level of Care Code 06996 Initial Inpt Care Lvl 3 Diagnoses Parkinsons disease G20
--- NOTE | 2020-01-09 13:39 | Psychiatric Progress Note ---
Date of Service January 09, 2020 Impression / Recommendations Impression This 75-year-old man was admitted because of inability to care for himself within the context of depression and Parkinson's disease. He also expressed suicidal threats that included taking an overdose of his stockpiled medications at home. The patient explains that he is having a great deal of difficulty adjusting to his new reality; namely that he has a progressive neurodegenerative disorder that is now interfering with his ability to function while living independently in his 3 bedroom home and [place]. Currently, he is telling us that he does not have any actual suicidal intent, but admits that he sometimes threatens suicide as a way of expressing his emotional distress. On the unit, the patient has demonstrated a number of strengths, including a sense of humor, concerning compassion about others, and a willingness to cooperate with treatment. Understandably, he tends to view options such as assisted living and residential rehabilitation treatment as evidence of further loss of independence, control, and dignity. However, while he is able to say that he is "not exactly happy" about needing inpatient rehab, with a follow-up plan for assisted living in the [facility], close to his daughter, son-in-law, and grandchildren, he is able to clearly state that he understands that he cannot safely return to home at this point because he is unable to care for his own physical needs, including his nutritional needs, his physical health needs, and his personal care needs such as bathing, showering, toileting, and dressing. The patient has been placed on Lexapro, and the dose is being titrated the patient's mood has improved, although he continues to show evidence of depression with a tendency towards negative thinking and excessive worrying. However, he is convincingly denying suicidal ideation at the present time. (1) Depression: 01/03 -continue inpatient treatment on a 302 involuntary commitment. Continue to gather information toward the need for ongoing treatment -Every 15 minute checks for safety. Encourage group attendance and participation. Work on healthy coping skills and discharge safety plan. -Increase escitalopram to 15mg daily to target mood and anxiety. -Provide education about his diagnosis and the recommended treatment. Explore options for outpatient mental health treatment. -Involve his daughter and the [facility] for discharge planning. 01/04 -continue escitalopram 15 mg daily. Encourage patient to participate in groups and therapy. -Schedule family meeting as above. 01/05 -the patient was able to smile and joke a bit today during an individual encounter with psychiatry. He continues to experience emotional distress related to themes of loss, such as loss of independence and physical health. -Patient participated in family meeting today with his daughter, Cookie, as well as the psychiatrist and social media campaign manager. The patient agreed to sign releases of information and is aware of the plan for him to leave the hospital on Thursday and be transferred to a rehabilitation program. He had a number of questions regarding the services that are likely to be offered in the rehabilitation program, and he accepted the explanations. Further, the patient acknowledges that he agreed that it is not currently safe for him to go home given his mobility issues, the fact that he is not able to put on or remove adult diapers, the fact it is sometimes difficult for him to remember to take his medications on time, and the fact that he has mobility problems due to his Parkinson's disease. -The patient acknowledges that he feels discouraged by the fact that he is not making progress, in terms of his movement disorder, and he expresses hope that rehab will be helpful in this regard. 01/06 and 01/07 - pleasant today, does seem to be tolerating medications, and although not enthusiatic about the plan he is able to show reasoning that he understands the need for rehabilitation and then assisted living of some sort due to his physical limitations. He is able to talk about this greif appropriately and denies SI, intention or plan. I would hope that his sleep and appetite and hope would improve as his depression improves and he settles to a more firm plan outside of the psychiatric unit. (If he continues to have poor sleep or appetite, could consider replace lexapro wtih remeron in the future after med-med interaction check, would need to monitor for orthostasis/fall risk.) (2) Failure to thrive: 01/03 -Likely multifactorial, due to worsening physical condition due to Parkinson's, cognitive impairment, depression, and social isolation. -PT and OT consults for weakness with recent fall and inability to care for self at home, assess for most appropriate level of care (inpatient rehab versus home with home health). Daughter would like him to move to [place] to an assisted living facility near her, and has been looking into this option. 01/04 -awaiting PT and OT assessments to determine level of care 01/05 and 01/06 -we have determined that the patient is an excellent candidate for the residential rehabilitation level of care at the present time. Goals will include helping the patient through occupational therapy to allow him to be able to apply and remove "Depends," use absorbent pads on his furniture, improve ambulation and grasp, improve nutritional status, and improve balance and strength. 01/07 - patient is motivated to exercise showing effort and volition here, but needing staff support for routine ADLs such as bathing, toileting or assistance cleaning up if missed opportunity for toileting or in AM after night of sleep. He is receptive to the idea of regaining stamina and strength as his personal goal is to maintain his abilities as long as he is able. At request of [facility] will seek consultation of Neurology for assessment of his PD and treatment and appropriateness for inpatient rehab, and from [facility] for assessment of his medical status and appropriateness for inpatient rehab as well. (3) Parkinsons disease: 01/03 -continue home dose of Sinemet. 01/04 -patient would benefit from ongoing care with a neurologist, but has not been willing to attend appointments. 01/05 and 01/06 -the patient needs additional education regarding Parkinson's disease. He admits that he sometimes feels as if there is nothing that can be done to improve his condition, but he is receptive to the idea of physical rehabilitation, additional education regarding medication management (such as the importance of taking his Parkinson medications exactly on time and as prescribed) and for preparation for progressing to the assisted living level of care. 01/07 - neurology consult for assessment of PD, treatment regimen and appropriateness for inpatient rehab (4) UTI (urinary tract infection): 01/03 -continue Bactrim twice daily x7 days, and get urine culture results from [facility]. 01/04 -culture and sensitivities not yet completed, will check again tomorrow. 01/04 - Culture and Sensitivities are still pending. Will check with lab. (5) Urinary and fecal incontinence: 01/03 -home health nurse indicates they found him lying in his bed soiled with urine and feces. Appears to have longstanding urinary incontinence, current UTI, as well as progressive weakness and inability to get out of bed to use the bathroom. He will require increased assistance and possibly placement. 01/05 -The patient is very distressed by this circumstance, and also worries that when visiting friends and family that he may soil or wet their furniture should he have an "accident." -He notes that he has great difficulty applying and removing adult diapers such as "Depends" because of his movement disorder. The patient states, "I can do it, but it takes so long that I tend to just give up. 01/06 and 01/07 - ongoing grief over this physical impairment, but working with nursing staff toward maintaining hygiene doing independently what he can while also allowing assistance when needed. 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 He does not think he ever went, and the ER called today to inform us of the results of his chest x-ray prior to transfer, which showed a 1.3 centimeter nodule. He will need to follow-up with his PCP for ongoing monitoring/work-up/treatment. Risk Factors Assessment Male: Yes : Yes Do You Have Access To A Gun?: No (Patient states he gave all of his guns to his grandson) Health Problems: Yes Mental Health Diagnoses: Yes Substance Use Disorders: No Previous Attempt: No Family History of Suicide: No Previous Psychiatric Hospitalization: Yes Hopelessness: Yes Smoker: No Protective Factors Assessment : No Responsible for Young Children: No Employed: No Supportive Family: Yes Good Rapport with Provider: No Interval History Chief Complaint "[]". Review of Systems Sleep Information Total Hours of Sleep: 9 Sleep Comments: see nurse's note Meal Information Percent Meal Consumed - Breakfast: 100 Percent Meal Consumed - Lunch: 75 Percent Meal Consumed - Dinner: 90 Subjective Subjective Patient was seen & assessed and interval progress reviewed with [treatment team] [nursing and social work] Physical Exam Vital Signs (Past 24 Hours) Last Vital Signs Temp 36.7 C 01/09/20 06:41 Pulse 80 01/09/20 06:42 Resp 18 01/09/20 06:41 BP 95/58 L 01/09/20 06:42 Pulse Ox 97 01/04/20 12:15 Results & Data ([facility]) Current Inpatient Medications Current Inpatient Medications: Current Inpatient Medications Acetaminophen (Tylenol) 650 mg PO Q4H PRN PRN Reason: Headache or Minor Fever Stop: 02/03/20 03:55 Al Hydrox/Mg Hydrox/Simethicone (Maalox) 30 ml PO Q4H PRN PRN Reason: GI Upset Stop: 02/03/20 03:55 Bismuth Subsalicylate (Kaopectate) 15 ml PO PRN PRN PRN Reason: Loose Stool Stop: 02/03/20 03:55 Carbidopa/Levodopa (Sinemet 25/100 Mg) 1 tab PO TID OPHELIA Stop: 02/03/20 13:59 Last Admin: 01/09/20 09:02 Dose: 1 tab Documented by: Escitalopram Oxalate (Lexapro Tab) 15 mg PO DAILY OPHELIA Stop: 02/04/20 08:59 Last Admin: 01/09/20 08:58 Dose: 15 mg Documented by: Lactobacillus Acidophilus (Floranex) 4 tab PO TIDM OPHELIA Stop: 02/03/20 17:44 Last Admin: 01/09/20 12:31 Dose: 4 tab Documented by: Magnesium Hydroxide (Milk Of Magnesia) 30 ml PO DAILY PRN PRN Reason: Constipation Stop: 02/03/20 03:55 Sodium Chloride ([place]on Nasal) 1 - 2 sprays NA PRN PRN PRN Reason: Nasal Dryness/Congestion Stop: 02/03/20 03:55 Vitamin D (Vitamin D3) 5,000 units PO DAILY OPHELIA Stop: 02/04/20 08:59 Last Admin: 01/09/20 09:02 Dose: 5,000 units Documented by: Mental Health & Subst Abuse Tx Therapist Name of Therapist: None [employer] Name of [employer]: None Post Discharge Appointments Primary Care Physician Name Of Family Doctor: [facility] - Dr. Cyril Cruz Primary Care Provider Appointment Comment: [address] [place] [address], [place], [place] Other #1: Name of Aftercare Appointment: [facility] - [place] Phone Number of Aftercare Appointment: [phone] #2: Name of Aftercare Appointment: [facility] Phone Number of Aftercare Appointment:
--- NOTE | 2020-01-09 14:44 | Discharge Summary ---
Date of Service January 09, 2020 History of Present Illness Per outside hospital records, patient presented to the ER 01/03/2020 on a 302 after his home health nurse found him home alone, lying in soiled undergarments, and made suicidal statements. His home health nurse noted he had also been exhibiting signs of inability to care for himself on their 12/30/2019 visit, was soiling himself and refusing to change clothes. The nurse completed a 302 petition stating the patient was incontinent of urine and stool, did not have any clean clothes in the house, was re-using urine soiled underwear. On 12/30/2019, he was found by adoption social worker lying in urine and stool. He said he had not been able to get up for 3 days, and wanted to take all of his sleeping pills and . He told the nurse he wanted his daughter in [place] to come home so he could take sleeping pills and while she was there, and also reviewed his end-of-life wishes with his daughter. He told ER staff he has been eating very little, has lost 20 pounds and is underweight, canceling his doctors appointments, and not taking his medications regularly. He said he had not been sleeping, as he was afraid to follow sleep and soil his bed, as he was unable to get up to use the bathroom. He had an EKG which showed sinus rhythm with first- degree AV block, rate of 70, QTc 392. His vital signs were normal, and labs were notable for RBC 4.47, hematocrit 40.9, BUN 32.4, creatinine 1.13, remainder of CBC and CMP normal. Troponin negative, TSH 2.390, UDS negative, UA cloudy, + ketones, protein, large leukocyte esterase, WBCs, bacteria. He was started on Bactrim for UTI. PCP records reviewed: Patient sees Cyril Cruz DO at [facility] in [place]. Last seen 06/30/2019 in follow-up from an ER visit the day prior for dizziness, which he was told was due to dehydration, and was started on doxycycline for unclear reasons. He came to the appointment with a friend, Soheila Mueller. He reported worsening resting tremors, urinary incontinence, weakness, fatigue, and poor dentition. He did not want to pay to get his teeth fixed. He had home health nursing on Fridays, and was following with a neurologist for his movement disorder. He had recently had a chest x-ray showing a 1.3 cm nodule in his right lung, and was scheduled to follow-up with pulmonary later in the month. Weight was 159.4 pounds his past problem list included obesity, weight loss, hypotension, insomnia, nocturia, GERD, erectile dysfunction, hyperlipidemia, cardiomyopathy, coronary artery disease, and BPH with urinary obstruction. At his annual physical 02/07/2019, he was diagnosed with Alzheimer's disease, CAD, cardiomyopathy, hyperlipidemia, insomnia, and vitamin D deficiency. His only medication was vitamin D3. He has lost 5 pounds, weight was 161.2 pounds, and he was receiving Meals on Wheels. He was referred to neurology due to a tremor and shuffling gait, and had seen urology for urinary incontinence. His father had of Parkinson's disease in his 60s. On arrival to our unit, he reported his hospitalization was a misunderstanding, although admitted he made statements that he would be "better off ." He denied a history of inpatient psychiatric treatment, although records indicate he was admitted at [facility] in 2017, and diagnosed with major depressive disorder and mild neurocognitive disorder Alzheimer's type. He reported a fall in his bathroom about 5 days ago, and was observed to have shuffling gait and poor coordination. He said he did not feel safe at home due to weakness and would like home health to come in more frequently than 2 days/week. Staff contacted his PCP to clarify diagnoses and outpatient medications, as there were discrepancies between the ER last and his home health nursing list. 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 Staff contacted the patient's daughter, who reports that he has been struggling for some time and going downhill, especially over the past few months in the context of worsening health. He moved to this area to be close to family, but they have since . He is and has a son and a stepson as well, but has little contact with them. His daughter has been trying to get him into assisted living near her in [place] for over a year, but he has been resistant to this, citing fears that he does not have sufficient funds, which she says is untrue. She is hoping that he will now agreed to move there. The Office of Aging has been involved but has told her that he is "competent to live in such poor conditions." He has been refusing to go to the doctor, take medications, shower, eat, or dress. He repeatedly tells her he wants to . On my assessment, the patient states he is here due to not caring for himself and problems with "cleanliness." He is unable to state how long this is been going on, and says he is "bad with time." He reports worsening mood, weakness, poor energy, and dissatisfaction with his life, stating "I just want a normal life," which he clarifies means "good health." He says he would prefer not to take any medications, and does not think any of his medications help him. He references his tremor, stating it is always there and interferes with sleep, and he does not think the Sinemet helps with his movements. He admits he never followed up with a neurologist, and that he has been canceling multiple doctors appointments, which he attributes to weakness and being unable to stand up or get out of bed. He says he drives himself to his appointments, and denies recently getting lost and MVAs. He reports multiple stressors, including "the state of the world," and disagreements with his daughter, namely that she wants him to go to assisted living, but he would "rather not," stating he does not have enough money. He admits to making suicidal statements, but says he "chose my words poorly, I just said it, I didn't mean it." He endorses frequent worry, stating he is worried about the state of the world, trying to becoming a world power, and the state of the [place]. He is socially isolated, stating he return to [place] where he is from as he had family members there, but they have all (he is unsure how long ago). He has one friend, an 88-year-old woman named A hawa who he met at [facility], but states she can only provide limited support. He no longer goes to the senior center or socializes outside the home. He does not endorse symptoms of lali or psychosis. He does report memory impairment. He is not sure how long he has been on the Lexapro. Physical Exam Psychiatric Orientation: alert, oriented x 3 and cooperative Apperance: appropriately dressed (casually, in t-shirt and scrub pants), appropriately groomed and appeared stated age Eye Contact: + fair eye contact Motor Behavior: + tremor (pill-rolling tremor of right hand) shuffling and tentative gait, limited facial expression Speech: normal rate/rhythm/volume of speech (anxious tone, soft volume) Affect: + anxious affect and mood congruent with affect Mood: + anxious mood Thought Process: clear/coherent thought process and thought association intact Thought Content: + preoccupation (with physical limitation, focused on bowel/bladder issues) and reality based without delusions; no hopelessness Suicidal Thoughts: denies suicidal thoughts and denies suicidal intent Homicidal Thoughts: denies homicidal thoughts Hallucinations: no auditory hallucinations and no visual hallucinations Cognition: attention grossly intact and language grossly intact Estimated Intelligence: consistent with education level Insight: + fair insight Judgement: + fair judgement Vital Signs (Past 24 Hours) Last Vital Signs Temp 36.7 C 01/09/20 06:41 Pulse 80 01/09/20 06:42 Resp 18 01/09/20 06:41 BP 95/58 L 01/09/20 06:42 Pulse Ox 97 01/04/20 12:15 Principal Diagnosis - Parkinson's Disease - Depression - Failure to thrive Psychiatric Data 75-year-old male admitted involuntarily for inpatient psychiatric treatment on 01/04/2020 due to inability to care for himself within the context of depression and Parkinson's disease. He also verbalized suicidal threats that included taking an overdose of his stockpiled medications at home. The patient explained that he is having a great deal of difficulty adjusting to his new reality; namely that he has a progressive neurodegenerative disorder that is now interfering with his ability to function while living independently in his 3 bedroom home. Pt initially presented as very hopeless, frequently verbalizing a desire to and limited self-worth but did deny actual suicidal intent, rather reporting that he sometimes threatens suicide as a way of expressing his emotional distress. During his inpatient hospitalization, the patient has demonstrated a number of strengths, including a sense of humor, concerning compassion about others, and a willingness to cooperate with treatment. He did seem to benefit from a supportive and structured setting, something he was not experiencing at home with only two days of home health services a week and no local family/caregivers. Understandably, patient verbalized view of options such as assisted living and residential rehabilitation treatment as evidence of further loss of independence, control, and dignity. However, while he is able to say that he is "not exactly happy" about needing inpatient rehab, with a follow-up plan for assisted living in the [facility], close to his daughter, son-in-law, and grandchildren, he is able to clearly state that he understands that he cannot safely return to home at this point because he is unable to care for his own physical needs, including his nutritional needs, his physical health needs, and his personal care needs such as bathing, showering, toileting, and dressing. Pt was evaluated by PT/OT, with both services recommending referral for acute physical rehabilitation on discharge. Neurology and hospitalist consultations were requested by the facility to supplement referral. Pt was accepted at [facility] for acute physical rehab, with a plan to work with his daughter to transition to an assisted living facility closer to family in [place]. Pt is aware of this and is agreeable with this plan at this time. The patient had been started on Lexapro as an outpatient, and was continued on his admission. The dose was titrated to 15mg daily to target depressive symptoms and anxiety. The patient does report improvement in mood, though he continues to show evidence of depression with a tendency towards negative thinking and excessive worrying. He has convincingly denied SI for the past several days, and has been agreeable with referral for inpatient acute rehab facility. As a result of the neurology consultation, it was recommended that the patient's dose of carbidopa-levodopa be increased to QID dosing. Pt is encouraged to follow-up on a known lung nodule with his PCP/plaster helper after discharge. Pt's daughter has been actively involved in his treatment. Based on review of patient's case and their current presentation, risk of harm to self or others is no longer perceived to be acute. Management of symptoms on an outpatient basis seems the most appropriate and least restrictive setting. Pt seems appropriate for discharge with recommendation for consistent follow-up with patient's PCP/rehab medical unit secretary. Pt verbalized understanding of discharge plan reviewed and is agreeable with plan to be discharged to [facility] today. Day of Discharge Assessment Patient's case was reviewed and discussed during treatment team. Staff report that the patient has appeared to demonstrate improvement in mood over the course of the weekend. He reportedly brightens on interaction and has been consistently denying SI. Pt's daughter continues to be involved in his treatment/discharge planning and is in support of efforts for placement in an acute physical rehab facility. Pt was seen today to assess readiness for discharge, after this provider was informed of his acceptance at [facility]. Pt states he is "ok" today, and admits that his weekend went well. He continues to be focused on episodes of incontinence, but is aware and agreeable with plan for transfer to an acute rehab facility. Pt does endorse improvement in mood and denies concern related to his psychotropic medications. Pt was informed of recommendations for QID dosing of carbidopa-levodopa, and is agreeable. Pt denies SI at this time. He does admit to feeling anxious at hearing that he will be transferred to [facility] today, stating "I'm not feeling emotionally prepared for this", but is aware this is the next step in assisting him with working toward a safer living environment. Pt is aware his daughter is assisting with coordination of these events. He denies any acute needs prior to discharge. Discharge medications were reviewed with the patient. ROS: Constitutional: denied Cardiovascular: denied Respiratory: denied Gastrointestinal: denied Neurological: denied Psychiatric: denies symptoms other than stated above Total of at least 10 systems reviewed, pertinent positives as above and in HPI. Transition of Care Transition Of Care Record: was reviewed with the patient Advance Directives Advance Directives Information Provided: Yes Advance Directives: Yes Mental Health Advance Directive: No Advance Directives on File: No Living Will: Yes Power of Printing Press Machinist: No Advance Directives Reason:: Declines as Mental Health Visit. Risk Factors Assessment Presenting risk factors reviewed on discharge. Precipitating stressors mitigated by: admission for inpatient psychiatric observation and treatment, appropriate adjustments to medications to target symptoms, attendance of therapeutic treatment groups, development of healthy and effective coping strategies, involvement of outpatient supports, completion of a safety plan, treatment of medical conditions and education on diagnoses. Pt has demonstrated improvement in condition with regard to improvement in mood and resolution of SI, requests for PT/OT evaluations and recommendations for higher level of care related to Parkinson's diagnosis, referrals to appropriate treatment facility based on recommendations, and involvement of daughter in treatment and discharge planning decisions. At this time, patient is requesting discharge and is no longer considered to be at acute risk of harm to himself or others. Pt will be discharged with recommendation for ongoing outpatient psychiatric treatment. Male: Yes : Yes Do You Have Access To A Gun?: No (Patient states he gave all of his guns to his grandson) Health Problems: Yes Mental Health Diagnoses: Yes Substance Use Disorders: No Previous Attempt: No Family History of Suicide: No Previous Psychiatric Hospitalization: Yes Hopelessness: Yes Smoker: No Protective Factors Assessment : No Responsible for Young Children: No Employed: No Supportive Family: Yes Good Rapport with Provider: No Tobacco Cessation at Discharge Tobacco Cessation Medication Prescribed at Discharge: Not Applicable/Non-Smoker Total Time Total Time Spent: Greater Than 30 Minutes Total Time Includes: Examination of the patient, Discharge Planning, Medication Reconciliation and Communication with other providers Discharge Data Consultations 01/08/20 10:48 Consult Neurology Routine 01/08/20 10:52 Consult Internal Medicine Routine Lab Results 01/08/20 01/08/20 12:38 12:38 WBC 5.99 RBC 4.53 L Hgb 13.7 L Hct 40.2 L MCV 88.7 MCH 30.2 MCHC 34.1 RDW Std Deviation 44.0 RDW Coeff of Fish 13.5 Plt Count 242 MPV 9.6 Sodium 137 Potassium 4.3 Chloride 100 Carbon Dioxide 26 Anion Gap 11.0 BUN 32 H Creatinine 1.19 Est Cr Clr Drug Dosing 46.9 Est GFR ( Amer) 67.9 Est GFR (Non-Af Amer) 58.6 BUN/Creatinine Ratio 26.9 H Glucose 93 Calcium 8.5 Hospital Course (1) Depression: 01/03 -continue inpatient treatment on a 302 involuntary commitment. Continue to gather information toward the need for ongoing treatment -Every 15 minute checks for safety. Encourage group attendance and participation. Work on healthy coping skills and discharge safety plan. -Increase escitalopram to 15mg daily to target mood and anxiety. -Provide education about his diagnosis and the recommended treatment. Explore options for outpatient mental health treatment. -Involve his daughter and the [facility] for discharge planning. 01/04 -continue escitalopram 15 mg daily. Encourage patient to participate in groups and therapy. -Schedule family meeting as above. 01/05 -the patient was able to smile and joke a bit today during an individual encounter with psychiatry. He continues to experience emotional distress related to themes of loss, such as loss of independence and physical health. -Patient participated in family meeting today with his daughter, Cookie, as well as the psychiatrist and social services coordinator. The patient agreed to sign releases of information and is aware of the plan for him to leave the hospital on Thursday and be transferred to a rehabilitation program. He had a number of questions regarding the services that are likely to be offered in the rehabilitation program, and he accepted the explanations. Further, the patient acknowledges that he agreed that it is not currently safe for him to go home given his mobility issues, the fact that he is not able to put on or remove adult diapers, the fact it is sometimes difficult for him to remember to take his medications on time, and the fact that he has mobility problems due to his Parkinson's disease. -The patient acknowledges that he feels discouraged by the fact that he is not making progress, in terms of his movement disorder, and he expresses hope that rehab will be helpful in this regard. 01/06 and 01/07 - pleasant today, does seem to be tolerating medications, and although not enthusiatic about the plan he is able to show reasoning that he understands the need for rehabilitation and then assisted living of some sort due to his physical limitations. He is able to talk about this greif appropriately and denies SI, intention or plan. I would hope that his sleep and appetite and hope would improve as his depression improves and he settles to a more firm plan outside of the psychiatric unit. (If he continues to have poor sleep or appetite, could consider replace lexapro wtih remeron in the future after med-med interaction check, would need to monitor for orthostasis/fall risk.) (2) Failure to thrive: 01/03 -Likely multifactorial, due to worsening physical condition due to Parkinson's, cognitive impairment, depression, and social isolation. -PT and OT consults for weakness with recent fall and inability to care for self at home, assess for most appropriate level of care (inpatient rehab versus home with home health). Daughter would like him to move to [place] to an assisted living facility near her, and has been looking into this option. 01/04 -awaiting PT and OT assessments to determine level of care 01/05 and 01/06 -we have determined that the patient is an excellent candidate for the residential rehabilitation level of care at the present time. Goals will include helping the patient through occupational therapy to allow him to be able to apply and remove "Depends," use absorbent pads on his furniture, improve ambulation and grasp, improve nutritional status, and improve balance and strength. 01/07 - patient is motivated to exercise showing effort and volition here, but needing staff support for routine ADLs such as bathing, toileting or assistance cleaning up if missed opportunity for toileting or in AM after night of sleep. He is receptive to the idea of regaining stamina and strength as his personal goal is to maintain his abilities as long as he is able. At request of [facility] will seek consultation of Neurology for assessment of his PD and treatment and appropriateness for inpatient rehab, and from [facility] for assessment of his medical status and appropriateness for inpatient rehab as well. (3) Parkinsons disease: 01/03 -continue home dose of Sinemet. 01/04 -patient would benefit from ongoing care with a neurologist, but has not been willing to attend appointments. 01/05 and 01/06 -the patient needs additional education regarding Parkinson's disease. He admits that he sometimes feels as if there is nothing that can be done to improve his condition, but he is receptive to the idea of physical rehabilitation, additional education regarding medication management (such as the importance of taking his Parkinson medications exactly on time and as prescribed) and for preparation for progressing to the assisted living level of care. 01/07 - neurology consult for assessment of PD, treatment regimen and appropriateness for inpatient rehab (4) UTI (urinary tract infection): 01/03 -continue Bactrim twice daily x7 days, and get urine culture results from [facility]. 01/04 -culture and sensitivities not yet completed, will check again tomorrow. 01/04 - Culture and Sensitivities are still pending. Will check with lab. (5) Urinary and fecal incontinence: 01/03 -home health nurse indicates they found him lying in his bed soiled with urine and feces. Appears to have longstanding urinary incontinence, current UTI, as well as progressive weakness and inability to get out of bed to use the bathroom. He will require increased assistance and possibly placement. 01/05 -The patient is very distressed by this circumstance, and also worries that when visiting friends and family that he may soil or wet their furniture should he have an "accident." -He notes that he has great difficulty applying and removing adult diapers such as "Depends" because of his movement disorder. The patient states, "I can do it, but it takes so long that I tend to just give up. 01/06 and 01/07 - ongoing grief over this physical impairment, but working with nursing staff toward maintaining hygiene doing independently what he can while also allowing assistance when needed. (6) Vitamin D deficiency: 01/03 - Continue home dose of vitamin D (7) Lung nodule: 01/04 -1.3 cm lung nodule noted in outpatient records from PCP 06/2019 visit, patient had been referred to a plaster helper. He does not think he ever went, and the ER called today to inform us of the results of his chest x-ray prior to transfer, which showed a 1.3 centimeter nodule. He will need to follow-up with his PCP for ongoing monitoring/work-up/treatment. Mental Health & Subst Abuse Tx Therapist Name of Therapist: None Energy Assistant Name of Energy Assistant: None Post Discharge Appointments Primary Care Physician Name Of Family Doctor: [facility] - Dr. Cyril Cruz Primary Care Provider Appointment Comment: [address] [place], [place] [address] Smoking Cessation Counseling Tobacco Cessation Medication Prescribed at Discharge: Not Applicable/Non-Smoker Other #1: Name of Aftercare Appointment: [facility] Rebecca Thayer Phone Number of Aftercare Appointment: [phone] #2: Name of Aftercare Appointment: [facility] Phone Number of Aftercare Appointment: Discharge Plan Discharge Items Patient Disposition: Transfer Inpatient Rehab Fac Reason For Visit: MAJOR DEPRESSIVE DISORDER, SI Discharge Diagnosis: - Parkinson's Disease - Depression - Failure to thrive - UTI Condition on Discharge: Fair Activity: Resume your previous activity Non-emergency contact: Primary Care Provider and [facility] Call non-emergency contact if: you have any medication questions and your symptoms worsen Follow-up/Referrals: PCP,NO [Primary Care Provider] - Diet: Regular Diet Texture: Easy to Chew Addtl Attending Provider Instructions: SPECIAL CARE INSTRUCTIONS: 1. Follow through with your scheduled aftercare appointments. If unable to keep an appointment, please call to reschedule. 2. Take your medication only as prescribed. Medication should not be changed or stopped without the approval of your doctor. In the event of worsening symptoms or concerns about side effects, contact your doctor immediately. 3. Utilize new healthy coping skills, anger management skills, and stress management skills learned during your hospitalization. Journal feelings and process them with a support person. Identify stressors or situations that may result in relapse, deterioration or inappropriate behaviors and develop a plan to deal with those issues. 4. If your coping skills are ineffective and you are in crisis, contact your outpatient providers for direction. If unable to reach your providers, please call the CAN HELP LINE AT or go to the closest Emergency Room. 5. Avoid alcohol and un-prescribed drugs. 6. You have been provided with the Mental Health Advance Directives Pamphlet for your review. AFTERCARE APPOINTMENTS: * Please call your insurance company prior to your scheduled appointment to confirm your aftercare providers are covered. Take your insurance information to your appointments. WHO TO CALL AND WHEN: Medical Emergencies: For questions or emergencies related to your hospital stay, please contact the Inpatient Behavioral Health Unit at [phone]. A hammer operator is on-call 19/01 for the Behavioral Health Unit for emergencies At any time you feel your situation is an emergency, you may also call 911 immediately. Your Discharge Instructions noted above were prepared by provider Nancy Baker PA-C. Pending Studies at Discharge: No Stand-Alone Forms: My [facility] Skilled Items Patient informed of condition?: No DNR: No Discharge Level of Care: Acute rehab Communicable Disease: No Discharge Prognosis: Improving Lines: None Urinary Catheter: No Medications and DC Order Prescriptions: New carbidopa-levodopa 25-100 mg Tablet 1 tab PO QID 30 Days Qty: 120 RF: 0 escitalopram oxalate 10 mg Tablet 15 mg PO DAILY 30 Days Qty: 45 RF: 0 Continued cholecalciferol (vitamin D3) [Vitamin D3] 125 mcg (5,000 unit) Tablet 5,000 unit PO DAILY RF: 0 Discontinued carbidopa-levodopa 25-100 mg Tablet 1 tab PO TID RF: 0 escitalopram oxalate [Lexapro] 10 mg Tablet 10 mg PO DAILY RF: 0 Discharge Orders: Discharge Order (Routine); Ordered 01/09/20 Ordered By: Nancy Baker Admission Data Admit Date/Time: 01/04/20 05:23 Attending Provider: Crystal Soares Admit Provider: Crystal Soares Primary Care Provider: PCP,NO Other Providers: [facility] ; Yves Bob ; Gerson Chacon ; Jessica Moser ; Harmony Leung ; Josue Murillo ; Yasmeen Loya I. Other Interventions: PSY Interdisciplinary Discharge Planning Last Done: 01/09/20 15:04 Coding Level of Care Code 48255 D/C day mgmt > 30 min Diagnoses Depression F32.9 Failure to thrive Parkinsons disease G20 UTI (urinary tract infection) N39.0 Urinary and fecal incontinence R32; R15.9 Vitamin D deficiency E55.9 Lung nodule R91.1
== END 2020-01-09 18:05 | DRG 57 ==
LOC: 3S 05:23